=== PATIENT | female | born 1950 | race African-American/Black ===

== ENCOUNTER 2022-10-13 13:06 | Emergency (ER) | payer MEDICARE, SELFPAY ==
--- NOTE | ~2022-10-13 | CT_ITS ---
EXAMINATION: CT brain wo con DATE: 10/13/2022 14:48 INDICATION: Dizziness. TECHNIQUE: Computed tomography (CT) of the head was performed without intravenous contrast. The mA wa s adjusted according to patient size. Iterative reconstruction technique was employed. The dose-lengt h product was 605.33 mGy-cm. COMPARISON: None FINDINGS: There is no intracranial hemorrhage, acute infarction, or abnormal intracranial mass lesion . There are scattered areas of low attenuation in the cerebral white matter. There is no intracranial hemorrhage, acute infarction, or abnormal intracranial mass lesion. The ventricles are normal in siz e. The orbits are normal. The paranasal sinuses are clear. The mastoid air cells are normal. IMPRESSION: 1. Mild nonspecific cerebral white matter disease, which likely represents chronic small vessel ische evelyne disease. Reviewed, dictated and finalized at location E. IMPRESSION: 1. 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
[2022-10-13 13:14] VITALS: BP 167/95; PULSE 79; RESP 16; TEMP 37; O2SAT 94
--- NOTE | 2022-10-13 13:14 | ECG_ITS ---
Measurements Intervals [place] Rate: 66 P: 35 AL: 181 QRS: -6 QRSD: 97 T: 11 QT: 408 QTc: 431 Interpretive Statements SINUS RHYTHM WITH SINUS ARRHYTHMIA INCOMPLETE RIGHT BUNDLE BRANCH BLOCK MINIMAL Q WAVES- HIGH LATERAL LEADDS BORDERLINE T WAVE ABNORMALITY- INFERIOR LEADS BASELINE ARTIFACT- I, II, III, AVR, AVL BORDERLINE ECG NO PREVIOUS ECG AVAILABLE FOR COMPARISON Electronically Signed On 10-13-2022 13:51:39 CDT by Scot Tinajero D.O.
--- NOTE | 2022-10-13 13:40 | PC.NURSE ---
Pt is wheeled into ER c/o dizziness that started yesterday morning after waking up. States she feels like the room is spinning and has to use the wall to support herself when walking. States she did feel nauseous and had bouts of dry heaving with the eventual watery emesis after drinking water to try and calm her stomach. States she has not been nauseous or had any emesis since. Denies any CP or SOB. States she does have pain in her lower back which is chronic. Pt is AOx3. Denies any LOC.
--- NOTE | 2022-10-13 13:58 | ED.DIZZY ---
HPI - Dizziness General Chief Complaint: Dizziness Stated Complaint: dizzy Time Seen by Provider: 10/13/22 13:44 History of Present Illness HPI Narrative: 72-year-old female presented to the emergency department for evaluation of dizziness that started yesterday. Patient states when she stands up gets walking she has a spinning sensation and feels like she is drifting to the left. Patient denies any falls or injuries. Patient denies any prior history of CVA. Patient denies any focal numbness or weakness. Related Data Allergies Allergy/AdvReac Type Severity Reaction Status Date / Time codeine Allergy Hives Verified 10/13/22 14:20 orange Allergy Other Verified 10/13/22 14:20 Penicillins Allergy Hives Verified 10/13/22 14:20 Review of Systems Review of Systems: All systems reviewed & are unremarkable except as noted in HPI and below Exam Narrative: APPEARANCE: Well appearing, no pain, no distress, well-nourished. HEAD: normocephalic, atraumatic. EYES: PERRLA/EOMI, conjunctivae clear. NOSE: Normal no drainage EARS:TMS clear with good light reflex. THROAT: Pharynx clear, no exudate. NECK: Supple. No adenopathy, no masses. RESPIRATORY: Airway patent, respirations nonlabored. Clear to auscultation bilaterally, no rales, rhonchi, wheezing. CARDIOVASCULAR: Regular rate and rhythm without murmurs rubs or gallops. ABDOMINAL: Soft, nontender, nondistended, normal bowel sounds MUSCULOSKELETAL: Moves all extremities. Strength/ROM intact, No edema, No calf tenderness. NEURO: Alert. Cranial nerves II through XII intact. Grossly intact SKIN: Warm, dry. Normal Color Course Course Emergency Course: 72-year-old female presenting to the ED for evaluation of dizziness. Unable to induce dizziness with sitting. Patient did have sustained nystagmus when looking to the left but did not have any symptoms with this. Patient had no focal deficit. Patient will be treated with meclizine and CT is pending. Patient and family were updated on the plan for treatment and evaluation. Patient had normal orthostatics and after the meclizine patient had no dizziness with standing and ambulation. Patient and family were updated on the results of the work-up. Patient repeatedly stated that she felt improved with treatment. Patient was provided meclizine for home. Patient was encouraged to have close follow-up with her primary care physician. All questions and concerns were addressed and patient was well-appearing at time of discharge. Vital Signs Vital signs: Vital Signs Temperature 98.6 F 10/13/22 13:14 Pulse Rate 79 10/13/22 13:14 Respiratory Rate 16 10/13/22 13:14 Blood Pressure 167/95 H 10/13/22 13:14 Pulse Oximetry 94 10/13/22 13:14 Oxygen Delivery Room Air 10/13/22 13:14 Temperature 98.6 F 10/13/22 13:14 Pulse Rate 72 10/13/22 16:42 Respiratory Rate 16 10/13/22 16:42 Blood Pressure 161/64 H 10/13/22 16:42 Pulse Oximetry 94 10/13/22 16:14 Oxygen Delivery Room Air 10/13/22 13:14 MDM - Dizziness Differential Diagnosis Differential diagnosis: Likely benign paroxysmal positional vertigo, orthostatic hypotension, vertebral basilar insufficiency, cerebrovascular accident, acute vestibular neuronitis and transient cerebral ischemia Lab Data Attestation: I reviewed the patient's lab results. 10/13/22 14:16 10/13/22 14:35 Labs: Lab Results 10/13/22 10/13/22 10/13/22 Range/Units 14:16 14:35 15:09 WBC 7.4 (4.5-10.0) K/mm3 RBC 4.32 (4.2-5.4) M/mm3 Hgb 13.6 (12.0-15.0) g/dL Hct 43.2 (37.0-47.0) % MCV 100.0 (80-100) fl MCH 31.5 (26-34) pg MCHC 31.5 L (32-36) g/dl RDW 12.5 (11.5-14.5) % Plt Count 233 (150-375) k/mm3 MPV 10.0 (7.4-10.4) fl Immature Gran % (Auto) 0.3 (0-0.5) % Neut % (Auto) 63.6 (45.5-73.1) % Lymph % (Auto) 23.1 (18.3-44.2) % [place] % (Auto) 11.1 H (2.6-8.5) % Eos % (Auto) 1.2 (0
[2022-10-13] MEDS: MECLIZINE HCL 25 MG TABLET PO (14:21)
[2022-10-13] MEDS: Please add drug allergy info to patient profile. 1 EACH XX (14:21)
[2022-10-13 14:23] LABS: Basophils Absolute Auto 0.1 K/mm3 (0.0-0.1); Basophils Percent Auto 0.7 % (0.2-1.2); Eosinophils Absolute Auto 0.1 K/mm3 (0-0.3); Eosinophils Percent Auto 1.2 % (0-4.4); Hematocrit 43.2 % (37.0-47.0); Hemoglobin 13.6 g/dL (12.0-15.0); Immature Granulocyte Absolute 0.02 K/mm3 (0.00-0.031); Immature Granulocyte Percent A 0.3 % (0-0.5); Lymphocytes Absolute Auto 1.71 K/mm3 (0.9-3.2); Lymphocytes Percent Auto 23.1 % (18.3-44.2); Mean Corpuscular HGB Conc 31.5 g/dl (32-36); Mean Corpuscular Hemoglobin 31.5 pg (26-34); Monocytes Absolute Auto 0.8 K/mm3 (0.1-0.6); Monocytes Percent Auto 11.1 % (2.6-8.5); Neutrophils Absolute Auto 4.7 K/mm3 (1.3-6.7); Neutrophils Percent Auto 63.6 % (45.5-73.1); Platelet Count Result 233 k/mm3 (150-375); Red Blood Count 4.32 M/mm3 (4.2-5.4); Red Cell Distribution Width 12.5 % (11.5-14.5); White Blood Count 7.4 K/mm3 (4.5-10.0)
[2022-10-13 14:30] VITALS: BP 180/85; PULSE 71
[2022-10-13 14:32] VITALS: BP 173/93; PULSE 73
[2022-10-13 14:35] VITALS: BP 175/89
--- NOTE | 2022-10-13 14:39 | PC.NURSE ---
While performing orthostatic bps pt, when standing pt states that she did not feel dizzy at that time. Pt was able to get back into bed without assistance.
[2022-10-13 14:51] LABS: Alanine Aminotransferase 44 U/L (6-35); Albumin Level 4.6 g/dL (3.5-5.1); Alkaline Phosphatase 128 U/L (38-126); Anion Gap 5 mmol/L (8-16); Aspartate Amino Transferase 49 U/L (14-36); Bilirubin,Total 1.1 mg/dL (0.2-1.3); Blood Urea Nitrogen 8 mg/dL (7-17); Calcium 9.3 mg/dL (8.4-10.2); Carbon Dioxide 34 mmol/L (22-30); Chloride 101 mmol/L (98-107); Estimated CRCL calculation 79 ml/min; Estimated Glomerular Filt Rate > 60; Glucose 98 mg/dL (65-110); Potassium 3.7 mmol/L (3.4-5.0); Sodium 140 mmol/L (137-145)
[2022-10-13 15:19] LABS: Appearance Urine Cloudy (Clear); Bacteria Urine Rare /hpf; Bilirubin Urine 1+ (Negative); Blood Urine Negative (Negative); Color Urine Dark Yellow (Yellow); Glucose Urine UA Negative (Negative); Ketones Urine Negative (Negative); Leukocyte Esterase Ur Negative LEU/UL (Negative); Nitrate Urine Negative (Negative); Non Pathogenic Casts 0-2; Protein Urine 3+ mg/dL (Negative); Squamous Epithelial Cell Urine Many /hpf (Few); Urobilinogen Urine 0.2 mg/dL (<2.0); pH Urine 5.5 (5.0-9.0)
[2022-10-13 15:23] LABS: Add Urine Microscopic? YES
[2022-10-13 16:14] VITALS: BP 161/84; PULSE 64; RESP 18; O2SAT 94
[2022-10-13 16:42] VITALS: BP 161/64; PULSE 72; RESP 16
== END 2022-10-13 16:43 | disposition home or self-care (01) ==
PROVIDERS: Emergency Provider Emergency Medicine; PCP Internal Medicine Infectious Disease
DX: H81.10 Benign paroxysmal vertigo, unspecified ear (principal); I45.10 Unspecified right bundle-branch block; R94.31 Abnormal electrocardiogram [ECG] [EKG]; R82.998 Other abnormal findings in urine
CPT/HCPCS: 36415; 70450; 80053; 81001; 85025; 87086; 87088; 93005; 99284; A9270

== ENCOUNTER 2024-06-11 13:52 | Outpatient (CLI) | payer MEDICARE, SELFPAY ==
--- NOTE | ~2024-06-11 | DEXA_ITS ---
Bone Density Report Name: GLORIA GÓMEZ Age: 73 Sex: Female Ethnicity: White Date of : 1950 Indication: postmenopausal; screening for osteoporosis; history of glucocorticoids; hysterectomy; Referring Provider: KEYONNA, SARAH Study: Bone densitometry was performed. Exam Date: June 11, 2024 Accession number: [id number] Bone Density: Region BMD T-score Z-score Classification AP Spine(L1, L2, L4) 1.770 6.7 8.9 Normal Femoral Neck (Left) 0.963 1.0 2.9 Normal Total Hip (Left) 1.164 1.8 3.4 Normal Femoral Neck (Right) 1.057 1.9 3.8 Normal Total Hip (Right) 1.138 1.6 3.2 Normal Femoral Neck Mean 1.010 1.4 3.3 Normal Total Hip Mean 1.151 1.7 3.3 Normal World Health Organization criteria for BMD impression classify patients as: Normal (T-score at or above -1.0), Osteopenia (T-score between -1.0 and -2.5), or Osteoporosis (T-score at or below -2.5). 10-year Fracture Risk: FRAX not reported because: All T-scores for Spine Total, Hip Total, Femoral Neck at or above -1.0 Clinical Information Provided by Patient: Has taken Glucocorticoids Has used the following medications: Vitamin D Has the following medical conditions: Hysterectomy Patient maximum height was 65.5 Menopause Age: 52 Does not regularly consume dairy products Onset of menses at age 15 Number of children 3 Impression: The patient has normal bone mass. The patient has risk factors, including: history of glucocorticoid therapy. Discussion: LOW RISK OF FRACTURE; BONE DENSITY IS WELL ABOVE THE MINIMUM DESIRABLE LEVEL AND ABOVE AVERAGE FOR AGE AND SEX AT ALL SKELETAL SITES TESTED. This person's bone density is above expected limits for age and sex. This is rarely clinically significant, but should be pursued if there are significant musculoskeletal complaints. The patient should follow a healthful lifestyle (good nutrition with adequate calcium and vitamin D, and appropriate weight-bearing exercise). Follow-Up: Consider repeating this study in 5 years or sooner if there is some new clinical indication. Reported by: TOMASZ on 06/11/2024 2:19:00 PM. Reviewed, dictated and finalized at location A.
--- OUTSIDE RECORDS SUMMARY | 2024-06-13 01:32 | XMS_ITS | CONTINUITY OF CARE DOCUMENT ---
Author Name davian mauromary Address Unknown Organization [facility] Address [address] [place] [address] Phone [phone] Care Team Providers Care Stationary Engineer Refrigeration Name Role Phone Yashira Heck MD Unavailable [phone] SARAH NEWBY MD Unavailable [phone] SARAH NEWBY MD Unavailable PROBLEMS Condition Status Date Provider Notes Dyspnea on exertion active Michel Hazel Hypertension active Yashira Heck MD Tobacco use, quit active Yashira Heck MD Chest pain-type to be determined active Lexi Heck MD Palpitations active Yashira Heck MD Hypercholesterolemia active Yashira preciado MD Arthritis, knees active Yashira Lindsey Gout active Yashira Heck MD COPD active Yashira Heck MD HAL, adult active Rodriguez Griffith ENCOUNTERS Date Type Provider Location Encounter Diag nosis - In-person encounter Office Visit Yashira Heck MD [facility] HAL, adult - In-person encounter Office Visit Yashira Heck MD [facility] COPD - In-person encounter Office Visit Yashira Heck MD [facility], [facility]-type to be determinedPalpitationsHype rcholesterolemiaArthritis, kneesGout VITAL SIGNS Date Observation Value Provider Body Mass Index (Ratio) 41.10 kg/m2 Rodriguez Griffith blood pressure, cuff size large Ke rri Gruenenfelder blood pressure, diastolic 86 mm[Hg] Ke rri Gruenenfelder blood pressure, systolic 154 mm[Hg] Gila ri Seenfelder oxygen saturation, oximetry 95 % Екатерина Cordell respiratory rate E&M 16 /min [facility] 90 /min Екатерина Andry er weight E&M 247 [lb_av] Екатерина Arrone [facility] height E&M 65 [in_i] Екатерина Andry [facility] blood pressure, diastolic 88 mm[Hg] Dusty Bridges blood pressure, systolic 148 mm[Hg] Gunjan Bridges pulse rate 100 /min Mansi melton oxygen saturation, oximetry 92 % Mansi Bridges respiratory rate E&M 18 /min Nolan Bridges Body Mass Index (Ratio) 44.19 kg/m2 Kandice Bridges weight E&M 265.6 [lb_av] Mansi jiémnez blood pressure, diastolic 91 mm[Hg] Me lopezsa Mackenzie blood pressure, systolic 179 mm[Hg] Jennifer croninkristin Mann pulse rate 86 /min Nora Mann oxygen saturation, oximetry 92 % Nora Mann respiratory rate E&M 16 /min Nora Mann Body Mass Index (Ratio) 44.26 kg/m2 Caitlin michelle Mann weight E&M 266 [lb_av] Nora Mann height E&M 65 [in_i] Nora Mann ALLERGIES Allergy Name Onset Date Reaction Criticality Status KATIE INHIBITORS cough cough Low Criticality acti ve HISTORY OF MEDICATION USE Medication Status Instructions Dates Provider Indications Com ments losartan 25 mg tablet active Joanna Saucedo PLAN COORDINATOR FLOVENT DISKUS 250 MCG/BLIST INHALATION AEROSOL POWDER BREATH ACTIVATED active 1 puff twice a day Екатерина Cordell rinse your mouth after using Coreg 6.25 mg tablet completed 1 tablet twice a day - Joanna Saucedo NP ASPIRIN 81 MG ORAL TABLET active 1 tablet once a day Nora Mann Ventolin HFA 90 mcg/actuation HFA aerosol inhaler active 2 puff every four to six hours Nora Mann Flonase Allergy Relief 50 mcg/actuation spray,suspensio n active once a day Nora Mann allopurinol 100 mg tablet active once a day Nora Mann atorvastatin 40 mg tablet active once a day Nora Mann SOCIAL HISTORY Date Observation Value Provider social history reviewed E&M revi ewed - no changes required Joanna Saucedo NP smoking, year quit 2003 Екатеирна Елена moran cigarette use yes Екатерина kang smoking status Former smoker Екатерина Geigermarissa rubio social history E&M Smoking Histo ry: P atient is a former smoker. Andrew Shepard social history reviewed E&M revi ewed - no changes required Yashira Heck MD smoking, year quit 2004 Mansi Bridges cigarette use yes Mansi jiménez smoking status Former smoker Mansi Mcconnell social history E&M Smoking Histo ry: P atient is a former smoker. Yashira Heck MD social history reviewed E&M revi ewed - no changes required Yashira Heck MD smoking, year quit 2003 Nora Soto Milena cigarette use yes Nora Mann smoking status Former smoker Nora Moore nn FAMILY HISTORY Family Member Condition Mother Family History of Co ronary Artery Disease: INSURANCE PROVIDERS Payer name Policy type / Coverage type Khanh red constitution party ID AARP MEDICARE ADVANTAGE HMO-POS HMO [id number] ADVANCE DIRECTIVES Name Date DISCUSSED - NO DECISION MADE TREATMENT PLAN Date Name Performer [id number],C, Q uit 20 years ago. Joanna Saucedo PLAN COORDINATOR [id number],C, R epeat holter monitor. N oncompliant with cpap. Joanna Saucedo NP [id number],C, C PAP, has not worn in a while, needs new machine Joanna Saucedo NP [id number],C, N egative nuclear stress test in 2015 E cho nm LV function, mild LAE, imparied relaxation Repeat nuclear stress test. Joanna Delon Saucedo NP [id number],C,P atient states her blood pressures are more in 130/80 range at home. COming to doctors make her blood pressure higher . Her updated medication list for this problem includes: Losartan 25 Mg Tablet (Losartan) BP today: 154/86 P rior BP: 148/88 (10/08/2015) Joanna Saucedo PLAN COORDINATOR [id number],C, H er updated medication list for this problem includes: Atorvastatin 40 Mg Tablet (Atorvastatin) ..... Once a day Joanna Saucedo NP [id number],C, P FT's abnormal. N o further complaints of dyspnea. Joanna Saucedo NP [id number],C, F ollows with manager environmental health and safety Joanna Saucedo NP Electrophysiology: Q uit 20 years ago. Joanna Saucedo NP Electrophysiology: R epeat holter monitor. N oncompliant with cpap. Joanna Saucedo [facility] Electrophysiology: C PAP, has not worn in a while, needs new machine Joanna Saucedo [facility] Electrophysiology: N egative nuclear stress test in 2016 E cho nm LV function, mild LAE, imparied relaxation Repeat nuclear stress test. Joanna Saucedo [facility] Electrophysiology:Senthil ellison states her blood pressures are more in 130/80 range at home. COming to doctors make her blood pressure higher . Her updated medication list for this problem includes: Losartan 25 Mg Tablet (Losartan) BP today: 154/86 P rior BP: 148/88 (10/08/2015) Joanna Saucedo [facility] Electrophysiology: H er updated medication list for this problem includes: Atorvastatin 40 Mg Tablet (Atorvastatin) ..... Once a day Joanna Coppolasamir [facility] Electrophysiology: P FT's abnormal. N o further complaints of dyspnea. Joanna Saucedo [facility] Elect[facility]: Adwoa ogden with manager environmental health and safety Joanna Delon Lewis [facility] faxed 09/20 :Rhythm: Sinus Rhythm T he average heart rate was 79 BPM with a maximum heart rate of 128 BPM at 14:16:28. T he minimum heart rate was 56 BPM at 06:48:04. N o Ventricular ectopics were noted. N o Supraventricular ectopics were noted. N o diary submitted. [facility] faxed 09/20 :Left Ventricular Analysis L eft ventricular size is normal.The left ventricular ejection fraction is calculated at 65% TID =.94.Wall motion is normal. No segmental wall motion abnormalities are present. Summary 1 . Normal myocardial perfusion imaging after vasodilator stress with Regadenoson. 2 . Normal left ventricular systolic function with a calculated ejection fraction of 65%. 3 . No obvious significant scintigraphic evidence of myocardial ischemia or scar. [facility] faxed 09/20 :BP today: 148/88 P rior BP: 179/91 (09/10/2015) Her updated medication list for this problem includes: Coreg 6.25 Mg Tabs (Carvedilol) ..... One tab. twice daily Aspirin 81 Mg Tabs (Aspirin) ..... One tab. daily Andrew Devyn [facility] faxed 10/18/15:PFT's a bnormal. [facility] faxed 09/20 :Repeat PFT's: P ulmonary Function Diagnosis: M ild airway obstruction, Following administration of bronchodilators, there is aome but not a significant response. M oderate to severe Restriction partially may be related to body habitus S evere Diffusion Defect when not corrected for alveolar volume, but moderate to severe when corrected for alveolar volume Andrew [facility] faxed 09/19:Her updated medication list for this problem includes: Atorvastatin Calcium 40 Mg Oral Tabs (Atorvastatin calcium) ..... Once daily Yashira Heck MD Cardiology faxed 09/19:BP today: 179/91 Her updated medication list for this problem includes: Coreg 6.25 Mg Tabs (Carvedilol) ..... One tab. twice daily Aspirin 81 Mg Tabs (Aspirin) ..... One tab. daily Yashira Heck MD Cardiology faxed 09/19:Orders: H olter Monitor 24 Hr (CPT-64565) Yashira Heck MD Cardiology faxed 09/19:Orders: H olter Monitor 24 Hr (CPT-76740) S TR - Adenosine (70356) P FT's C omplete Echo (CPT-41996) Yashira Heck MD Date Name Aorta Duplex Ultraso und Holter Monitor 48 hr Stress Regadenoson Holter Monitor 24 Hr Complete Echo Holter Monitor 24 Hr Complete Echo DLCO - 01895 FRC - 18243 FVC - 46249 STR - Adenosine Holter Monitor 24 Hr HISTORY OF PROCEDURES Procedure Date Procedure Name Provider Procedure Notes S tatus EKG Yashira greene MD completed Schedule Followup Yashira hernandez MD 1 year completed SNOMED-CT: 448470342 Smoking Cessation Counseling Yashira Heck MD completed SNOMED-CT: 474373247457272 Current Medications Documented Yashira Heck MD completed BLOOD COUNT HEMOGLOBIN Yashira simons MD completed FVC - 55148 Yashira greene MD completed FRC - 59242 Yashira greene MD completed DLCO - 06236 Yashira greene MD completed Stress EKG Reji Gallardo MD complete d Regadenoson, 4 units ulius Sreehdar pinto MD completed Cardiolite, 2 units Saulius Lakisha beach MD completed SPECT Images Yossi Rodríguez MD com pleted SNOMED-CT: 241060471 Smoking Cessation Counseling Yashira Heck MD completed EKG Yashira greene MD completed SNOMED-CT: 687815548650597 Current Medications Documented Yashira eHck MD completed
--- OUTSIDE RECORDS SUMMARY | 2024-06-13 01:32 | XMS_ITS | Data Portability ---
Author Organization [place] - [facility], Main Office Address [address] [place] [address] Care Team Providers Care Learning Coach Name Role Phone SARAH NEWBY Primary Care Provider SARAH NEWBY Referring Provider [phone] Assessment Encounter Date Assessment Date Assessment LastModified by Organization Details LastModified Time 01/24/2024 01/24/2024 The patient has severe primary osteoarthritis left knee joint she also has a new injury with a contusion and a small hematoma over the anterior left knee no new bony trauma is noted. We talked about treatment options today in detail we are going to start with a course of physical therapy to work on range of motion swelling control we will get her set up here at the office. Talked about medication we are going to start her on naproxen 500 mg b.i.d. with food I told her I would see her back in a month she did inquire about a cortisone injection think this is reasonable due to the fact that she has significant osteoarthritis. Under sterile conditions at her request I injected the patient's left knee joint in the office with 4 cc 0.5% bupivacaine and 20 mg of Kenalog. Patient tolerated the procedure well. I will see her back in a month see how she is progressing slow gradual improvement is to be expected. She voiced understanding agrees above plan she will call for any further problems difficulties or questions. [email or web address] Not available 01/24/2024 11:56:14 Plan of Treatment Reminders Order Date Submit Date Provider Last Modified By Organization Details Last Modified Time Details Appointments None recorded. Lab None recorded. Referral physical therapist referral - please contact patient to schedule 2023 [email or web address] [facility], [address], [place], [address], 13:41:53 Procedures injection/a spiration joint/bursa (PROC) 2023 024 [email or web address] In-Office Order, Internal Use Only DO Not Attach Compendium DO Not Attach Compendium, Do Not Delete/merge, [id number] 11:43:10 Surgeries None recorded. Imaging None recorded. Medication Orders naproxen 500 mg tablet 2023 024 [email or web address] [facility] [address], [address], 4 11:51:00 bupivacaine HCl 0.5 % (5 mg/mL) injection solution 2023 024 [email or web address] [facility] [address], [address], 4 11:51:00 Kenalog 10 mg/mL suspension for injection 2023 024 [email or web address] [facility] [address], [address], 4 11:51:00 Patient TargetsNo targets recorded. Patient InstructionsNo instructions recorded. Reason for Referral Physical Therapist Referral for Pain of left knee joint please contact patient to schedule Referring Physician: Ryder Alaniz, Orthopedic Surgery, Encounter Date: 01/24/2024 Results Created Date Observation Date Name Description Value Unit Range Abnormal Flag Note LastModifiedBy Organization Detail LastModifiedTime 01/23/20 24 XR, knee No observ ation record ed. Not Available 2023 12:15:17 01/23/20 24 XR, elbow No observ ation record ed. [email or web address] Not Available 2023 12:15:14 01/23/20 24 XR, shoul ev No observ ation record ed. [email or web address] Not Available 2023 12:15:22 Result Notes None recorded. Problems Name Problem SNOMED Code Status Onset Date Resolution Date Notes Provider Name and Address Organization Details Recorded Time Osteoarthr itis of knee 243711386 Active Not Available [facility] 3 16:10:14 Dyspnea 878256542 Active Not Available [facility] 3 16:10:14 Chest pain 44963816 Active Not Available [facility] 3 16:10:14 Current tear of medial cartilage AND/OR meniscus of knee Active Not Available [facility] 3 16:10:14 Sarcoidosi s 17285861 Active Not Available [facility] 3 16:10:14 Osteoarthr itis 844349883 Active Not Available [facility] 3 16:10:14 Obesity 302863706 Active Not Available [facility] 3 16:10:14 Cough 57334468 Active Not Available [facility] 3 16:10:14 Derangemen t of knee 24272644 Active Not Available [facility] 3 16:10:14 Snoring 71479238 Active Not Available [facility] 3 16:10:14 Hypersomni a 88679326 Active Not Available [facility] 3 16:10:14 Chronic rhinitis 82175181 Active Not Available [facility] 3 16:10:14 Pain of left knee joint 7241527366309 07 Active 2023 Marzena Zimmerman CNA null, [facility] 4 11:25:27 Osteoarthr itis of left knee joint 8303329847889 09 Active 2023 FIF[facility] Summers [address], [place], [address] , [employer] [facility] 4 11:56:21 Contusion of left knee 4696435069141 9109 Active 2023 FIFI Summers [address], [place], [address] , [facility] [employer] [facility] 4 11:57:18 Problem Notes None recorded. Procedures Surgical History Date Name Laterality Status Provider Name and Address Organization Details Recorded Time Knee completed Marzena Zimmerman CNA [place] - [employer] [facility] 01/24/2024 11:24:56 Imaging Results Imaging Date Name Status LastModified by Organiz ation Details LastModified Time 01/23/2024 XR, knee completed Information no t available 01/23/2024 12:15:17 01/23/2024 XR, elbow completed [email or web address] Information no t available 01/23/2024 12:15:14 01/23/2024 XR, shoulder completed [email or web address] Information not available 01/23/2024 12:15:22 Procedure Notes None recorded. Medical Equipment None Reported. Allergies Allergen ID Allergen Name Allergen Category Reaction Reaction Severity Criticality Documentation Date Start Date Code Code System Note Provider Name and Address Organization Details Recorded Time 08774 Substance with sulfonami de structure and antibacte rial mechanism of action (substanc e) medicatio n rash Not available Not available 07/19/2022 23167 8003 SNOMED Not Available [facility] 16:10:46 Medications Name Sig Start Date Stop Date Status Note LastModified by Organization Details LastModified Time amoxicillin 500 mg capsule 11/12 completed Not Available Not Available Not Available atorvastati n 40 mg tablet TAKE 1 TABLET BY MOUTH EVERY DAY active Not Available Not Available No t Available lisinopril 20 mg-hydrochl orothiazide 12.5 mg tablet Take 1 tablet every day by oral route. 01/23 completed Not Available Not Available Not Available azithromyci n 250 mg tablet 11/12 completed Not Available Not Available Not Available clonidine 0.2 mg/24 hr weekly transdermal patch Apply 1 patch every week by transderm al route. 01/23 completed Not Available Not Available Not Available IBU 800 mg tablet 11/12 completed Not Available Not Available Not Available clarithromy celestino 500 mg tablet 11/12 completed Not Available Not Available Not Available hydrocodone 5 mg-acetamin ophen 325 mg tablet 01/23 completed Not Available Not Available Not Available bupivacaine HCl 0.5 % (5 mg/mL) injection solution Take 20 mg by injection route. 2023 active Not Available Not Available Not Avai lable prednisone 20 mg tablet 11/12 completed Not Available Not Available Not Available allopurinol 100 mg tablet TAKE 1 TABLET BY MOUTH EVERY DAY active Not Available Not Available No t Available sulfamethox azole 800 mg-trimetho prim 160 mg tablet TAKE 1 TABLET BY MOUTH EVERY 12 HOURS DIRECTED FOR 3 DAYS, FOR UTI 01/23 completed Not Available Not Available Not Available tramadol 50 mg tablet 11/12 completed Not Available Not Available Not Available Celebrex 200 mg capsule Take 1 capsule every day by oral route. 11/12 completed Not Available Not Available Not Available prednisolon e acetate 1 % eye drops,suspe nsion 11/12 completed Not Available Not Available Not Available IBU 600 mg tablet 11/12 completed Not Available Not Available Not Available Kenalog 10 mg/mL suspension for injection Take 20 mg by injection route. [address] [facility]: 0003- [phone]- [phone] Not Available Not Available Not Available meclizine 25 mg tablet TAKE 1 TABLET BY MOUTH THREE TIMES A DAY DIRECTED FOR 14 DAYS 01/23 completed Not Available Not Available Not Available cephalexin 500 mg capsule 11/12 completed Not Available Not Available Not Available promethazin e 25 mg tablet 11/12 completed Not Available Not Available Not Available losartan 25 mg tablet TAKE 1 TABLET BY MOUTH EVERY DAY DIRECTED. STOP LISINOPRI L active Not Available Not Available No t Available Mapap (acetaminop hen) 325 mg tablet 11/12 completed Not Available Not Available Not Available diclofenac sodium 75 mg tablet,artur yed release 11/12 completed Not Available Not Available Not Available lisinopril 5 mg tablet 11/12 completed Not Available Not Available Not Available Cheratussin AC 10 mg-100 mg/5 mL oral liquid 11/12 completed Not Available Not Available Not Available fluticasone propionate 50 mcg/actuati on nasal spray,suspe nsion SPRAY 2 SPRAY IN EACH NOSTRIL ONCE A DAY active Not Available Not Available No t Available naproxen 500 mg tablet TAKE 1 TABLET BY MOUTH TWICE A DAY 2023 active Not Available Not Available Not Avai lable amoxicillin 875 mg-potassiu m clavulanate 125 mg tablet TAKE 1 TABLET BY MOUTH TWICE A DAY FOR 7 DAYS 01/23 completed Not Available Not Available Not Available Ventolin HFA 90 mcg/actuati on aerosol inhaler 2019 active Not Available Not Available Not Avai lable TriLyte With Flavor Packets 420 gram oral solution 11/12 completed Not Available Not Available Not Available lidocaine (PF) 10 mg/mL (1 %) injection solution In office injection administe red by the provider 01/[address] [facility]: [phone] [phone]- [phone] Not Available Not Available Not Available Vitals Date Recorded Body height Body mass index (BMI) Body weight Provider Name and Address Organization Details Last Updated DateTime 01/24/2024 163.83 cm 41.4 kg/m2 053344.13 g Marzena Zimmerman CNA [employer] 01/24/2024 11:21:35 Social History Question Answer Notes LastModified by Organizat ion Details LastModified Time Tobacco Smoking Status Never Smoker Marzena Zimmerman CNA null [employer] [facility] 01/24/2024 11:24:29 What Is Your Level Of Alcohol Consumption? 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 Mental Status None recorded. Family History Relationship Description Onset Age of this Age Resolved Age Notes LastModified by Organization Details LastModified Time Brother Heart disease [email or web address] Not available 2023 11:23:39 Sister Family history of stroke [email or web address] Not available 2023 11:23:50 Sister Hypertensive disorder [email or web address] Not available 2023 11:24:01 Sister Diabetes mellitus [email or web address] Not available 2023 11:24:10 Notes:cancer-sister Medical History Condition Response HYPERTENSION Y Gynecological HistoryNo gynecological history recorded. Obstetrics History GPAL:G 0 P 0 0 0 0 Immunizations Vaccine Type Date Status Note Provider Nam e and Address Organization Details Recorded Time Influenza, split virus, quadrivalent, PF 07/19/2013 completed Not Available [facility] 16:10:45 Past Encounters Encounter ID Performer Location Encounter Start Date Encounter Closed Date Diagnosis/Indication Diagnosis SNOMED-CT Code Diagnosis ICD10 Code Diagnosis Note [id number] [facility] [address] [place] [address] 01/24/2024 10:55:26 01/24/2024 13:41:52 Pain of left knee joint 1905095790 94637 M25.562 Osteoarthr itis of left knee joint 6879354728 09805 M17.12 Contusion of left knee 1145851194 3359958 S80.02XA Health Concerns Section Related Observation LastModified by Organization Detai ls LastModified Time None Recorded Concern Status LastModified by Organization Details LastModified Time None Recorded Advance Directives Directive None Recorded Payers Encounter Date Sequence Insurance Name Policy Number Policy Johnston Covered Member ID Johnston Member ID Guarantor Name 01/24/2024 1 [facility] (MEDICARE REPLACEMENT/A DVANTAGE - HMO) [id number] Fely Jiang [id number] Fely Jiang Notes Date Note Type Note Provider Name and Address Organization Details Recorded Time 01/24/2024 text/html The patient is a 73-year-old female who suffered an injury to her left knee 1 week ago. She was walking at the gas station when she tripped on the concrete fell forward and landed on her left knee. She had immediate pain and swelling developed anterior ecchymosis and a small hematoma. She did go to the emergency room at [facility] had x-rays performed. X-rays demonstrated no acute fracture lesion or mass no bony trauma is noted she does have fairly severe tricompartmental degenerative changes however this has been chronically present obviously but she states she has not really had any significant pain in the knee prior to this injury. Today she reports the pain about an 8 on a scale of 1-10 she is not taking any oral anti-inflammatory medication has been trying to move her knee keep it loose limited but states it hurts a lot when she moves it or ambulates. She reports a lot of anterior tenderness over the knee localized to the bruising and hematoma region. She denies any weakness or sensation of instability she is able to bear full weight on it with discomfort. She comes in today for initial evaluation treatment. Today I reviewed the x-rays in detail today with the patient I agree with the above findings. New past medical history sheet was reviewed and signed on intake sheet of today's date drug allergies current medications family social history previous surgical history 10 point review of systems was reviewed and discussed in detail today with the patient. [facility] Summers [address], [place], [address], [facility] [employer] [facility] 01/24/2024 12:01:06 OBGyn Episode No OBEpisode recorded.
--- OUTSIDE RECORDS SUMMARY | 2024-06-13 01:32 | XMS_ITS | Data Portability ---
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 tonia Not available 11/09/2022 13:37:58 Plan of Treatment Reminders Order Date Submit Date Provider Last Modified By Organization Details Last Modified Time Details Appointments ANY 15 2024 08:45A Charles Newby MD Not available Not available Not available Lab rf (rheumato id factor) + anti-ccp abs, serum 2022 023 [facility], [address] [facility], [facility] [place], [address], 02/20/2023 13:12:19 influenza virus A + B + SARS-CoV- 2 (COVID19) Ag panel, rapid IA, upper respirato ry specimen 2022 023 [facility], [address] [place], [address], 11/05/2023 11:33:03 CBC w/ auto diff 2023 024 [facility], [address] [facility], [address], [place], [address], 11/06/2023 10:13:25 CMP, serum or plasma 2023 024 [facility], [address] [facility] [address], [address], [place], [address], 11/06/2023 10:13:21 urinalysi s, dipstick 2023 024 [facility], [address] [place] [address] [address], [address], [place], [address], 11/06/2023 10:13:23 lipid panel, serum 2023 024 [facility], [address] [place], [place] [address]mate[place], [address], [place], [address], 11/06/2023 10:13:20 HbA1c (hemoglob in A1c), blood 2023 024 [facility], [address] [place], [place] [address]mate[place] [address], [address], [place], [address], 11/06/2023 10:13:23 TSH, ultra-sen sitive, serum 2023 024 [facility], [address] [place], [place] [address]mate[place], [address], [place], [address], 11/06/2023 10:13:24 vitamin D, 25-hydrox y, total, serum 2023 024 [facility], [address] [place], [place] [address]mate[address], [address], [place], [address], 04/03/2024 08:31:[address] referral - Hx of a gait abnormali ty, 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 shoulder pain with decreased ROM after a fall 2023 024 [facility] Ryder Alaniz PA-C, [address] , [place], [address], 06/04/2024 11:26:34 sleep medicine referral - HAL on CPAP 2023 024 [facility], [address], [place], [address], 06/04/2024 11:26:34 Procedures None recorded. Surgeries None recorded. Imaging MRI, cervical spine, w/o contrast - Peridonto id synovial hypertrop hy, RA? 2022 023 [facility] ([facility]), [address] [place], [address], 03/01/2023 12:28:17 MAMMO, screening , bilateral 2022 024 [facility] ([facility]), [address] [place], [address], 06/22/2023 11:44:17 XR, hip + pelvis, unilatera l, 2 or 3 view - [facility] [address] [place], [address], 04/03/2024 09:05:31 DEXA [address] (Imaging), [address] [facility] [address], [place], [address], 06/12/2024 09:30:38 Medication Orders Zithromax Z-Justin 250 mg tablet [facility] [address] [facility], [address] [place] [address], [address], 02/19/2023 09:47:38 Augmentin 875 mg-125 mg tablet 2022 023 [facility] [address] [facility], [address] [place] [address], [address], 11/05/2023 11:33:40 meclizine 25 mg tablet 2023 024 [facility] [address] In [facility], [address] [place] [address], [address], 11/05/2023 12:16:36 Patient TargetsNo targets recorded. Patient Instructions Encounter Date Encounter Id Patient Instructions Last Modified By Organization Details Last Modified Time 11/09/[id number] chest and EKG as ordered Azithromycin Neurology opinion Cardiology as referred Follow up in 6-8 weeks and PRN oajao Not available 11/09/2022 13:39:55 02/19/2023 [id number] influenza (flu) vaccine: care instructions oajao Not available 02/19/2023 11:12:18 MRI cervical spine EKG to Dr Pickett (Done) Cardiology follow up Follow up in 3-4 weeks (Post MRI) oajao Not available 02/19/2023 10:11:07 03/22/2023 [id number] cervical disc disease: care instructions oajao Not available 03/22/2023 13:52:06 upper respirator y infection (cold): care instructions oajao Not available 03/22/2023 12:28:06 chronic sinusitis: care instructions oajao Not available 03/22/2023 12:26:45 Labs Augmentin, side effects were discussed MMG in May, Follow up in 6 months and PRN oajao Not available 03/22/2023 12:30:28 11/05/2023 [id number] high cholesterol : care instructions oajao Not available 11/05/2023 12:21:29 body mass index: care instructions oajao Not available 11/05/2023 12:16:34 learning about healthy weight oajao Not available 11/05/2023 12:16:34 Labs Xray Orthopedics Avoid all NSAIDS Follow up in 6 months and PRN oajao Not available 11/05/2023 12:22:37 04/02/2024 [id number] influenza (flu) vaccine: care instructions oajao Not available 04/02/2024 09:51:31 sleep apnea: car e instructions oajao Not available 04/02/2024 10:12:16 Follow up with Orthopedics Sleep medicine Schedule the COVID vaccine Follow up in 3 months and PRN oajao Not available 04/02/2024 10:55:34 Reason for Referral Neurologist 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 shoulder pain with decreased ROM after a fall L. shoulder pain with decreased ROM after a fall Referring Physician: Fransisco New[facility], Encounter Date: 04/02/2024 Results Created Date Observation Date Name Description Value Unit Range Abnormal Flag Note LastModifiedBy Organization Detail LastModifiedTime 10/25/19 23 10/24/2022 POTAS SIUM potassium 3.7 mmol/ L 3.5-5. 3 Not Available [facility] Department [address] [place], [address], 10/24/2022 20:09:10 10/25/19 23 10/24/2022 MAGNE SIUM magnesium 1.83 mg/L 1.70-2 .50 Not Available [facility] Department [address] [place], [address], 10/24/2022 20:09:11 10/25/19 23 10/25/2022 TSH TSH 2.330 uIU/m L 0.450- 4.500 Not Available [facility] ([facility]) [address] [place], [address], 10/25/2022 13:11:50 02/20/20 23 02/20/2023 RHEUM ATOID ARTHR ITIS PROFI LE rheumatoid factor (rf) 11.3 IU/mL <14.0 Not Available [facility]) [address] [place], [address], 02/20/2023 13:12:19 02/20/20 23 02/20/2023 RHEUM ATOID ARTHR ITIS PROFI LE anti-ccp Ab, IgG/IgA 4 units 0-19 Negat lambert <20 Weak posit lambert 20 - 39 Moder ate posit lambert 40 - 59 Stron g posit lambert >59 Not Available [facility] ([facility]) [address] [place], [address], 02/20/2023 13:12:19 11/05/19 24 11/06/2023 LIPID PANEL cholesterol, total 142 mg/dL 100-19 9 Not Available [facility] ([facility]) [address] [place], [address], 11/06/2023 10:13:20 11/05/19 24 11/06/2023 LIPID PANEL triglyceride s 79 mg/dL 0-149 Not Available [facility]) [address] [place], [address], 11/06/2023 10:13:20 11/05/19 24 11/06/2023 LIPID PANEL HDL cholesterol 52 mg/dL >39 Not Available [facility]) [address] [place], [address], 11/06/2023 10:13:20 11/05/19 24 11/06/2023 LIPID PANEL VLDL cholesterol cuate 15 mg/dL 5-40 Not Available [facility] ([facility]) [address] [place], [address], 11/06/2023 10:13:20 11/05/19 24 11/06/2023 LIPID PANEL LDL chol calc ([facility]) 75 mg/dL 0-99 Not Available [facility]) [address] [place], [address], 11/06/2023 10:13:20 11/05/19 24 11/06/2023 COMP. METAB OLIC PANEL (14) glucose 87 mg/dL 70-99 Not Available [facility] ([facility]) [address] [place], [address], 11/06/2023 10:13:21 11/05/19 24 11/06/2023 COMP. METAB OLIC PANEL (14) BUN 15 mg/dL 8-27 Not Available [facility] ([facility]) [address] [place], [address], 11/06/2023 10:13:21 11/05/19 24 11/06/2023 COMP. METAB OLIC PANEL (14) creatinine 0.74 mg/dL 0.57-1 .00 Not Available [facility] ([facility]) [address] [place], [address], 11/06/2023 10:13:21 11/05/19 24 11/06/2023 COMP. METAB OLIC PANEL (14) eGFR 86 mL/mi n/1.7 3 >59 Not Available [facility] ([facility]) [address] [place], [address], 11/06/2023 10:13:21 11/05/19 24 11/06/2023 COMP. METAB OLIC PANEL (14) BUN/creatini ne ratio 20 -28 Not Available [facility] ([facility]) [address], [place], [address], 11/06/2023 10:13:21 11/05/19 24 11/06/2023 COMP. METAB OLIC PANEL (14) sodium 140 mmol/ L 134-14 4 Not Available [facility] ([facility]) [address], [place], [address], 11/06/2023 10:13:21 11/05/19 24 11/06/2023 COMP. METAB OLIC PANEL (14) potassium 4.1 mmol/ L 3.5-5. 2 Not Available [facility] ([facility]) [address], [place], [address], 11/06/2023 10:13:21 11/05/19 24 11/06/2023 COMP. METAB OLIC PANEL (14) chloride 102 mmol/ L 96-106 Not Available [facility] ([facility]) [address], [place], [address], 11/06/2023 10:13:21 11/05/19 24 11/06/2023 COMP. METAB OLIC PANEL (14) carbon dioxide, total 22 mmol/ L 20-29 Not Available [facility] ([facility]) [address], [place], [address], 11/06/2023 10:13:21 11/05/19 24 11/06/2023 COMP. METAB OLIC PANEL (14) calcium 9.6 mg/dL 8.7-10 .3 Not Available [facility] ([facility]) [address] [facility], [place], [address], 11/06/2023 10:13:21 11/05/19 24 11/06/2023 COMP. METAB OLIC PANEL (14) protein, total 7.9 g/dL 6.0-8. 5 Not Available [facility] ([facility]) [address] [facility] [place], [address], 11/06/2023 10:13:21 11/05/19 24 11/06/2023 COMP. METAB OLIC PANEL (14) albumin 4.1 g/dL 3.8-4. 8 Not Available [facility] ([facility]) [address] [facility], [place], [address], 11/06/2023 10:13:21 11/05/19 24 11/06/2023 COMP. METAB OLIC PANEL (14) globulin, total 3.8 g/dL 1.5-4. 5 Not Available [facility] ([facility]) [address] [facility], [place], [address], 11/06/2023 10:13:21 11/05/19 24 11/06/2023 COMP. METAB OLIC PANEL (14) bilirubin, total 0.9 mg/dL 0.0-1. 2 Not Available [facility] ([facility]) [address] [facility], [place], [address], 11/06/2023 10:13:21 11/05/19 24 11/06/2023 COMP. METAB OLIC PANEL (14) alkaline phosphatase 128 IU/L 44-121 above high normal Not Available [facility] ([facility]) [address] [facility], [place], [address], 11/06/2023 10:13:21 11/05/19 24 11/06/2023 COMP. METAB OLIC PANEL (14) AST (SGOT) 34 IU/L 0-40 Not Available [facility] ([facility]) [address] [facility], [address], 11/06/2023 10:13:21 11/05/19 24 11/06/2023 COMP. METAB OLIC PANEL (14) ALT (SGPT) 27 IU/L 0-32 Not Available [facility] ([facility]) [address] [facility], [place], [address], 11/06/2023 10:13:21 11/05/19 24 11/06/2023 MICRO SCOPI C EXAMI NATIO N WBC 6-10 /hpf 0-5 abnormal Not Available [facility] ([facility]) [address] [facility], [place], [address], 11/06/2023 10:13:22 11/05/19 24 11/06/2023 MICRO SCOPI C EXAMI NATIO N RBC 0-2 /hpf 0-2 Not Available [facility] ([facility]) [address] [facility], [place], [address], 11/06/2023 10:13:22 11/05/19 24 11/06/2023 MICRO SCOPI C EXAMI NATIO N epithelial cells (non renal) >10 /hpf 0-10 abnormal Not Available [facility] ([facility]) [address] [facility], [place], [address], 11/06/2023 10:13:22 11/05/19 24 11/06/2023 MICRO SCOPI C EXAMI NATIO N casts NONE SEEN /lpf nonese en Not Available [facility] ([facility]) [address] [facility], [place], [address], 11/06/2023 10:13:22 11/05/19 24 11/06/2023 MICRO SCOPI C EXAMI NATIO N bacteria MODERA TE nonese en/few abnormal Not Available [facility] ([facility]) [address] [facility], [place], [address], 11/06/2023 10:13:22 11/05/19 24 11/06/2023 HEMOG LOBIN A1C hemoglobin A1C 5.4 % 4.8-5. 6 Predi abete s: 5.7 - 6.4 Diabe shy: >6.4 Glyce evelyne contr ol for adult s with diabe shy: <7.0 Not Available [facility] ([facility]) [address] [facility], [place], [address], 11/06/2023 10:13:22 11/05/19 24 11/06/2023 URINA LYSIS , ROUTI NE specific gravity 1.024 1.005- 1.030 Not Available [facility] ([facility]) [address] [facility], [place], [address], 11/06/2023 10:13:23 11/05/19 24 11/06/2023 URINA LYSIS , ROUTI NE pH 6.0 5.0-7. 5 Not Available [facility] ([facility]) [address] [facility], [place], [address], 11/06/2023 10:13:23 11/05/19 24 11/06/2023 URINA LYSIS , ROUTI NE urine-color YELLOW yellow Not Available [facility] ([facility]) [address] [facility], [place], [address], 11/06/2023 10:13:23 11/05/19 24 11/06/2023 URINA LYSIS , ROUTI NE appearance CLEAR clear Not Available [facility] ([facility]) [address] [facility], [place], [address], 11/06/2023 10:13:23 11/05/19 24 11/06/2023 URINA LYSIS , ROUTI NE WBC esterase NEGATI VE negati ve Not Available [facility] ([facility]) [address] [place], [address], 11/06/2023 10:13:23 11/05/19 24 11/06/2023 URINA LYSIS , ROUTI NE protein 1+ negati ve/tra ce abnormal Not Available [facility] ([facility]) [address] [place], [address], 11/06/2023 10:13:23 11/05/19 24 11/06/2023 URINA LYSIS , ROUTI NE glucose NEGATI VE negati ve Not Available [facility] ([facility]) [address] [place], [address], 11/06/2023 10:13:23 11/05/19 24 11/06/2023 URINA LYSIS , ROUTI NE ketones NEGATI VE negati ve Not Available [facility] ([facility]) [address] [place], [address], 11/06/2023 10:13:23 11/05/19 24 11/06/2023 URINA LYSIS , ROUTI NE occult blood NEGATI VE negati ve Not Available [facility] ([facility]) [address] [place], [address], 11/06/2023 10:13:23 11/05/19 24 11/06/2023 URINA LYSIS , ROUTI NE bilirubin NEGATI VE negati ve Not Available [facility] ([facility]) [address] [place], [address], 11/06/2023 10:13:23 11/05/19 24 11/06/2023 URINA LYSIS , ROUTI NE urobilinogen ,semi-qn 1.0 mg/dL 0.2-1. 0 Not Available [facility] ([facility]) [address] [place], [address], 11/06/2023 10:13:23 11/05/19 24 11/06/2023 URINA LYSIS , ROUTI NE nitrite, urine NEGATI VE negati ve Not Available [facility] ([facility]) [address] [place], [address], 11/06/2023 10:13:23 11/05/19 24 11/06/2023 URINA LYSIS , ROUTI NE microscopic examination SEE BELOW: Micro scopi c was indic ated and was perfo rmed. Not Available [facility] ([facility]) [address] [facility], [place], [address], 11/06/2023 10:13:23 11/05/19 24 11/06/2023 TSH TSH 1.770 uIU/m L 0.450- 4.500 Not Available [facility] ([facility]) [address] [facility], [place], [address], 11/06/2023 10:13:24 11/05/19 24 11/06/2023 CBC WITH DIFFE RENTI AL/PL ATELE T WBC 5.7 x10e3 /uL 3.4-10 .8 Not Available [facility] ([facility]) [address] [facility], [place], [address], 11/06/2023 10:13:25 11/05/19 24 11/06/2023 CBC WITH DIFFE RENTI AL/PL ATELE T RBC 4.18 x10e6 /uL 3.77-5 .28 Not Available [facility] ([facility]) [address] [facility], [place], [address], 11/06/2023 10:13:25 11/05/19 24 11/06/2023 CBC WITH DIFFE RENTI AL/PL ATELE T hemoglobin 13.0 g/dL 11.1-1 5.9 Not Available [facility] ([facility]) [address] [facility], [place], [address], 11/06/2023 10:13:25 11/05/19 24 11/06/2023 CBC WITH DIFFE RENTI AL/PL ATELE T hematocrit 41.0 % 34.0-4 6.6 Not Available [facility] ([facility]) [address] [facility], [place], [address], 11/06/2023 10:13:25 11/05/19 24 11/06/2023 CBC WITH DIFFE RENTI AL/PL ATELE T MCV 98 fL 79-97 above high normal Not Available [facility] ([facility]) [address] [facility], [place], [address], 11/06/2023 10:13:25 11/05/19 24 11/06/2023 CBC WITH DIFFE RENTI AL/PL ATELE T MCH 31.1 pg 26.6-3 3.0 Not Available [facility] ([facility]) [address] [facility], [place], [address], 11/06/2023 10:13:25 11/05/19 24 11/06/2023 CBC WITH DIFFE RENTI AL/PL ATELE T MCHC 31.7 g/dL 31.5-3 5.7 Not Available [facility] ([facility]) [address] [facility], [place], [address], 11/06/2023 10:13:25 11/05/19 24 11/06/2023 CBC WITH DIFFE RENTI AL/PL ATELE T RDW 11.7 % 11.7-1 5.4 Not Available [facility] ([facility]) [address] [facility], [place], [address], 11/06/2023 10:13:25 11/05/19 24 11/06/2023 CBC WITH DIFFE RENTI AL/PL ATELE T platelets 201 x10e3 /uL 150-45 0 Not Available [facility] ([facility]) [address] [facility], [place], [address], 11/06/2023 10:13:25 11/05/19 24 11/06/2023 CBC WITH DIFFE RENTI AL/PL ATELE T neutrophils 50 % notest ab. Not Available [facility] ([facility]) [address] [facility], [place], [address], 11/06/2023 10:13:25 11/05/19 24 11/06/2023 CBC WITH DIFFE RENTI AL/PL ATELE T lymphs 32 % notest ab. Not Available [facility] ([facility]) [address] [facility], [place], [address], 11/06/2023 10:13:25 11/05/19 24 11/06/2023 CBC WITH DIFFE RENTI AL/PL ATELE T monocytes 12 % notest ab. Not Available [facility] ([facility]) [address] [facility], [place], [address], 11/06/2023 10:13:25 11/05/19 24 11/06/2023 CBC WITH DIFFE RENTI AL/PL ATELE T eos 5 % notest ab. Not Available [facility] ([facility]) [address] [facility], [place], [address], 11/06/2023 10:13:25 11/05/19 24 11/06/2023 CBC WITH DIFFE RENTI AL/PL ATELE T basos 1 % notest ab. Not Available [facility] ([facility]) [address] [facility], [place], [address], 11/06/2023 10:13:25 11/05/19 24 11/06/2023 CBC WITH DIFFE RENTI AL/PL ATELE T neutrophils (absolute) 2.8 x10e3 /uL 1.4-7. 0 Not Available [facility] ([facility]) [address] [place], [address], 11/06/2023 10:13:25 11/05/19 24 11/06/2023 CBC WITH DIFFE RENTI AL/PL ATELE T lymphs (absolute) 1.8 x10e3 /uL 0.7-3. 1 Not Available [facility] ([facility]) [address] [place], [address], 11/06/2023 10:13:25 11/05/19 24 11/06/2023 CBC WITH DIFFE RENTI AL/PL ATELE T monocytes(ab solute) 0.7 x10e3 /uL 0.1-0. 9 Not Available [facility] ([facility]) [address] [place], [address], 11/06/2023 10:13:25 11/05/19 24 11/06/2023 CBC WITH DIFFE RENTI AL/PL ATELE T eos (absolute) 0.3 x10e3 /uL 0.0-0. 4 Not Available [facility] ([facility]) [address] [facility], [place], [address], 11/06/2023 10:13:25 11/05/19 24 11/06/2023 CBC WITH DIFFE RENTI AL/PL ATELE T baso (absolute) 0.1 x10e3 /uL 0.0-0. 2 Not Available [facility] ([facility]) [address] [facility], [place], [address], 11/06/2023 10:13:25 11/05/19 24 11/06/2023 CBC WITH DIFFE RENTI AL/PL ATELE T immature granulocytes 0 % notest ab. Not Available [facility] ([facility]) [address] [facility], [place], [address], 11/06/2023 10:13:25 11/05/19 24 11/06/2023 CBC WITH DIFFE RENTI AL/PL ATELE T immature grans (abs) 0.0 x10e3 /uL 0.0-0. 1 Not Available [facility] ([facility]) [address] [facility], [place], [address], 11/06/2023 10:13:25 11/12/19 24 11/12/2023 PROTE IN ELECT RO RANDO M URINE please note: COMMEN T Prote [facility] w via compu ter, mail, or couri peng adrian. Not Available [facility] ([facility]) [address] [facility], [place], [address], 11/14/2023 11:14:42 11/12/19 24 11/13/2023 PROTE IN ELECT RO, RANDO M URINE protein,tota l,urine 16.3 mg/dL notest ab. Not Available [facility] ([facility]) [address] [place], [address], 11/14/2023 11:14:42 11/12/19 24 11/14/2023 PROTE IN ANAID SHAH M URINE albumin, U 51.0 % Not Available [facility] ([facility]) [address] [place], [address], 11/14/2023 11:14:42 11/12/19 24 11/14/2023 PROTE IN [facility] BEAR MCFADDENO M URINE nuqix-4-vovx ulin, U 2.3 % Not Available [facility] ([facility]) [address] [place], [address], 11/14/2023 11:14:42 11/12/19 24 11/14/2023 PROTE IN [facility] ANAID MCFADDEN URINE bbrvo-1-rmec ulin, U 10.3 % Not Available [facility] ([facility]) [address] [place], [address], 11/14/2023 11:14:42 11/12/19 24 11/14/2023 PROTE IN ANAID SHAH URINE beta globulin, U 19.3 % Not Available [facility]) [address] [place], [address], 11/14/2023 11:14:42 11/12/19 24 11/14/2023 PROTE IN [facility] ANAID MCFADDEN URINE gamma globulin, U 17.1 % Not Available [facility] ([facility]) [address] [place], [address], 11/14/2023 11:14:42 11/12/19 24 11/14/2023 PROTE IN ANAID SHAH M URINE M-spike, % NOT OBSERV ED % notobs erved Not Available [facility] ([facility]) [address] [place], [address], 11/14/2023 11:14:42 11/12/19 24 11/14/2023 PROTE IN ELECT ANAID MCFADDEN URINE pdf . Not Available [facility] ([facility]) [address], [place], [address], 11/14/2023 11:14:42 11/12/19 24 11/13/2023 PROTE IN TOTAL , QN, 24-HR URINE prot,24HR calculated 245 mg/24 _HR 30-150 above high normal Not Available [facility] ([facility]) [address] [facility], [place], [address], 11/14/2023 11:14:43 04/02/20 24 04/03/2024 VITAM IN D, 25-HY DROXY vitamin D, 25-hydroxy 16.4 NG/mL 30.0-1 00.0 below low normal Vitam in D defic iency has been defin ed by the Insti tute of Medic ine and an Endoc rine Socie ty pract ice guide line as a level of serum 25-OH vitam in D less than 20 ng/mL (1,2) . The Endoc rine Socie ty went on to furth er defin e vitam in D insuf ficie ncy as a level betwe en 21 and 29 ng/mL (2). 1. IOM (Inst itute of Medic ine). 2010. Jania ry refer ence markus es for calci um and D. Raheem melvin [place]: [facility] . 2. Bethanie armas MF, Roe ey [place], [place] off-F errar i HOLMAN, et al. Evalu ation , treat ment, and preve ntion of vitam in D defic iency : an Endoc rine Socie ty clini cuate pract ice guide line. JCEM. 2010; 96(7) :1911 -30. Not Available [facility] ([facility]) [address] [facility], [place], [address], 04/03/2024 08:31:48 10/14/19 23 10/13/2022 CT, brain , w/o contr ast No observ ation record ed. [address], [place], [address], 10/24/2022 09:31:08 10/26/19 23 10/25/2022 MRI, brain + brain stem, w/o contr ast No observ ation record ed. [facility] [address] [place], [address], 02/19/2023 10:08:59 11/10/19 23 10/13/2022 elect timoteo wolffjigar am No observ ation record ed. [address], [place], [address], 02/19/2023 09:54:38 01/05/20 23 01/04/2023 CT, chest , w/ contr ast No observ ation record ed. [facility] [address] [place], [address], 02/19/2023 10:07:16 03/01/20 23 03/01/2023 MRI, brain + brain stem, w/o contr ast No observ ation record ed. [facility] [address] [place], [address], 03/22/2023 12:09:38 03/01/20 23 03/01/2023 MRI, cervi cuate spine , w/o contr ast No observ ation record ed. [facility] [address] [place], [address], 03/22/2023 12:18:47 06/22/19 24 06/22/2023 MAMMO , scree casimiro, bilat eral No observ ation record ed. [facility] [address] [place], [address], 11/05/2023 12:00:57 04/02/20 24 01/16/2024 XR, shoul ev No observ ation record ed. [facility] [address], [place], [address], 04/03/2024 09:05:31 04/08/20 24 01/16/2024 XR, elbow No observ ation record ed. oajao Not Available 2023 09:06:53 04/08/20 24 01/16/2024 XR, knee No observ ation record ed. oajao Not Available 2023 09:06:53 Result Notes None recorded. 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 333973129 Active 2022 Not Available [facility] 4 09:56:49 Chronic cerebral ischemia 214091244 Active 2022 Not Available [facility] 4 09:56:49 Electrocar diogram abnormal 557751378 Active 2022 Not Available [facility] 4 09:56:49 Degenerati on of cervical interverte bral disc 13022458 Active 2022 Not Available [facility] 4 09:56:50 Sarcoidosi s 46905647 Active Not Available [facility] 4 09:56:49 Blood leukocyte number above reference range 023865074 Active Not Available [facility] 4 09:56:50 Increased blood pressure 02537851 Active Not Available [facility] 4 09:56:49 Pain of left knee joint 3562906595509 07 Active Oladele Ajao, MD Attn: Accounting ,[address] [facility], [place], [address] , [facility] 4 09:48:55 Gout 10695661 Active Not Available [facility] 4 09:56:50 Shoulder pain 99654457 Active Not Available [facility] 4 09:56:50 Elevated blood-pres sure reading without diagnosis of hypertensi on 019603800 Active Not Available [facility] 4 09:56:49 Benign hypertensi on 01890929 Active Not Available [facility] 4 09:56:49 Injury of foot 281412327 Active Not Available [facility] 4 09:56:49 Pure hyperchole sterolemia 504323617 Active Not Available [facility] 4 09:56:49 Chest pain 34538997 Active Not Available [facility] 4 09:56:49 Alkaline phosphatas e above reference range 307885303 Active Not Available [facility] 4 09:56:49 Knee pain Active Not Available [facility] 4 09:56:49 Osteoarthr itis of knee 991364609 Active Not Available [facility] 4 09:56:49 Acute bronchitis 52686086 Active Not Available [facility] 4 09:56:49 Increased liver function 94148613 Active Not Available [facility] 4 09:56:50 Grief finding 546926911 Active Not Available [facility] 4 09:56:49 Notes:Some problems listed i n Documents: #[id number], #[id number] could not be added to this patient's chart. Please review these documents and add these problems to the patient's chart manually as needed. Problem Notes None recorded. Procedures Surgical History Date Name Laterality Status Provider Name and Address Organization Details Recorded Time 09/19/19 14 colonoscopy completed Fransisco Newby MD Attn: Accounting,[address] [facility], [place], [address], [facility] 10/13/2022 13:52:30 05/21/18 81 Total hysterectomy completed Fransisco Newby MD Attn: Accounting,[address], [place], [address], [place] [facility] 05/16/2019 16:22:04 Back Surgery completed August Yamile [place] [facility] 05/28/2014 16:12:20 Hysterectomy completed Fransisco Newby MD Attn: Accounting,[address], [place], [address], [place] [facility] 11/06/2014 15:44:21 Tubal Ligation completed Fransisco Newby MD Attn: Accounting,[address], [place], [address], [place] [facility] 11/06/2014 15:44:21 Imaging Results Imaging Date Name Status LastModified by Organization Details LastModified Time 10/13/2022 CT, brain, w/o contrast completed [address], [address], 10/24/2022 09:31:08 10/25/2022 MRI, brain + brain stem, w/o contrast completed [facility] [address] [place], [address], 02/19/2023 10:08:59 10/13/2022 electrocardiogram completed [address], [address], 02/19/2023 09:54:38 01/04/2023 CT, chest, w/ contrast completed [facility] [address] [place], [address], 02/19/2023 10:07:16 03/01/2023 MRI, brain + brain stem, w/o contrast completed [facility] [address] [place], [address], 03/22/2023 12:09:38 03/01/2023 MRI, cervical spine, w/o contrast completed [facility] [address] [place], [address], 03/22/2023 12:18:47 06/22/2023 MAMMO, screening, bilateral completed [facility] [address] [place], [address], 11/05/2023 12:00:57 01/16/2024 XR, shoulder completed [facility] [address] [place], [address], 04/03/2024 09:05:31 01/16/2024 XR, elbow completed Information no t available 04/09/2024 09:06:53 01/16/2024 XR, knee completed Information no t available 04/09/2024 09:06:53 Procedure Notes None recorded. Medical Equipment None Reported. Allergies Allergen ID Allergen Name Allergen Category Reaction Reaction Severity Criticality Documentation Date Start Date Code Code System Note Provider Name and Address Organization Details Recorded Time [id number] ibuprofen medicatio n other severe Not available 09/07/2015 5640 RxNorm GI Ulcer Not Available Not Available Not Available Medications Name Sig Start Date Stop Date Status Note LastModified by Organization Details LastModified Time Prescripti on - New 05/16 completed Not Available Not Available Not Available amoxicilli n 500 mg capsule 02/21 completed Not Available Not Available Not Available atorvastat in 40 mg tablet TAKE 1 TABLET BY MOUTH EVERY DAY active Not Available Not Available No t Available azithromyc in 250 mg tablet TAKE 2 TABLETS BY MOUTH TODAY, THEN TAKE 1 TABLET DAILY FOR 4 DAYS 02/19 completed Not Available Not Available Not Available ibuprofen 800 mg tablet 10/17 completed Not Available Not Available Not Available hydrocodon e 5 mg-acetami nophen 325 mg tablet active Not Available Not Available No t Available prednisone 20 mg tablet TAKE 2 TABLETS EVERY DAY BY MOUTH WITH MEALS FOR 5 DAYS. 12/13 completed Not Available Not Available Not Available Tylenol Arthritis Pain 650 mg tablet,ext ended release Take 2 tablets every 8 hours by oral route as directed for 30 days. 2016 active Not Available Not Available Not Avai lable Biaxin 500 mg tablet Take 1 tablet every 12 hours by oral route for 7 days. 11/06 completed Not Available Not Available Not Available Aspir-Low 81 mg tablet,del ayed release Take 1 tablet every day by oral route as directed for 30 days. 2018 active Not Available Not Available Not Avai lable allopurino l 100 mg tablet TAKE 1 TABLET BY MOUTH EVERY DAY active Not Available Not Available No t Available sulfametho xazole 800 mg-trimeth oprim 160 mg tablet TAKE 1 TABLET BY MOUTH EVERY 12 HOURS DIRECTED FOR 3 DAYS, FOR UTI 04/02 completed Not Available Not Available Not Available tramadol 50 mg tablet TAKE 2 TABLETS BY MOUTH EVERY 12 HOURS 10/27 completed Not Available Not Available Not Available Tessalon Perles 100 mg capsule Take 1 capsule 3 times a day by oral route as needed. 2014 active Not Available Not Available Not Avai lable prednisolo ne acetate 1 % eye drops,susp ension 04/04 completed Not Available Not Available Not Available magnesium oxide 400 mg (241.3 mg magnesium) tablet TAKE 1 TABLET BY MOUTH TWICE A DAY DIRECTED FOR 1 DAY 11/09 completed Not Available Not Available Not Available meclizine 25 mg tablet TAKE 1 TABLET BY MOUTH THREE TIMES A DAY DIRECTED FOR 14 DAYS active Not Available Not Available No t Available cephalexin 500 mg capsule Take 1 capsule every 6 hours by oral route for 7 days. 03/22 completed Not Available Not Available Not Available promethazi ne 25 mg tablet active Not Available Not Available Not Available losartan 25 mg tablet TAKE 1 TABLET BY MOUTH EVERY DAY DIRECTED. STOP LISINOPRI L active Not Available Not Available No t Available Mapap (acetamino phen) 325 mg tablet 06/18 completed Not Available Not Available Not Available diclofenac sodium 75 mg tablet,del ayed release one po bid prn with pain, take with meals 09/06 completed Not Available Not Available Not Available lisinopril 5 mg tablet TAKE 1 TABLET BY MOUTH EVERY DAY 05/29 completed Cough 05/29/19 23 Not Available Not Available Not Available ergocalcif justin (vitamin D2) 1,250 mcg (50,000 unit) capsule TAKE 1 CAPSULE BY MOUTH WEEKLY DIRECTED FOR 28 DAYS FOR LOW VITAMIN D. active Not Available Not Available No t Available Cheratussi n AC 10 mg-100 mg/5 mL oral liquid Take 10 mL every 4 hours by oral route for 5 days. 11/06 completed Not Available Not Available Not Available ibuprofen 600 mg tablet 03/22 completed Not Available Not Available Not Available fluticason e propionate 50 mcg/actuat ion nasal spray,susp ension SPRAY 2 SPRAY IN EACH NOSTRIL ONCE A DAY active Not Available Not Available No t Available naproxen 500 mg tablet TAKE 1 TABLET BY MOUTH TWICE A DAY active Not Available Not Available No t Available amoxicilli n 875 mg-potassi um clavulanat e 125 mg tablet TAKE 1 TABLET BY MOUTH TWICE A DAY FOR 7 DAYS 11/04 completed Not Available Not Available Not Available Ventolin HFA 90 mcg/actuat ion aerosol inhaler Inhale two puffs every 6 hours prn with sob 2020 active Not Available Not Available Not Avai lable Klor-Con M20 mEq tablet,ext ended release TAKE 2 TABLETS BY MOUTH EVERY DAY DIRECTED FOR 1 DAY 11/09 completed Not Available Not Available Not Available TriLyte With Flavor Packets 420 gram oral solution active Not Available Not Available Not Available ID NOW COVID-19 Test Kit TEST DIRECTED TODAY 10/27 completed Not Available Not Available Not Available Vitals Date Recorded Body height Provider Name an d Address Organization Details Last Updated DateTime 11/09/2022 166.37 cm Maria Elena Guerrero [place] [facility] 023 09:16:41 Date Recorded Body mass index (BMI) Body weight Provider Name and Address Organization Details Last Updated DateTime 11/09/2022 39.2 kg/m2 090120.58 g [place] [place] 11/09/2022 09:24:34 Date Recorded Oxygen saturation Oxygen saturation in Arterial blood by Pulse oximetry Provider Name and Address Organization Details Last Updated DateTime 11/09/2022 95 % 95 % HELDER [place] [facility] 11/09/2022 09:26:22 Date Recorded Heart rate Provider Name an d Address Organization Details Last Updated DateTime 11/09/2022 84 /min Maria Elena Guerrero [place] [facility] 023 09:26:24 Date Recorded Respiratory rate Provider Name a nd Address Organization Details Last Updated DateTime 11/09/2022 16 /min Maria Elena Rock GlenHE[place]ER rub[place] [facility] 023 09:26:26 Date Recorded Body height Provider Name an d Address Organization Details Last Updated DateTime 02/19/2023 166.37 cm Maria Elena Guerrero [place] [facility] 023 09:41:01 Date Recorded Body mass index (BMI) Body weight Provider Name and Address Organization Details Last Updated DateTime 02/19/2023 39.8 kg/m2 417571.38 g Maria Elena YolandaHELDER rubio [facility] 02/19/2023 09:46:52 Date Recorded Heart rate Provider Name an d Address Organization Details Last Updated DateTime 02/19/2023 80 /min Maria Elena [place] [facility] 023 09:49:07 Date Recorded Respiratory rate Provider Name a nd Address Organization Details Last Updated DateTime 02/19/2023 18 /min Maria Elena Rock [place] rub[place] [facility] 023 09:49:09 Date Recorded Oxygen saturation Oxygen saturation in Arterial blood by Pulse oximetry Provider Name and Address Organization Details Last Updated DateTime 02/19/2023 95 % 95 % Maria Elena YolandaHELDER rubio [facility] 02/19/2023 09:49:16 Date Recorded Body height Provider Name an d Address Organization Details Last Updated DateTime 03/22/2023 166.37 cm Maria Elena Guerrero [place] [facility] 023 11:55:32 Date Recorded Body mass index (BMI) Body weight Provider Name and Address Organization Details Last Updated DateTime 03/22/2023 39.2 kg/m2 549936.58 g Maria Elena Guerrero [place] [facility] 03/22/2023 11:55:45 Date Recorded Oxygen saturation Oxygen saturation in Arterial blood by Pulse oximetry Provider Name and Address Organization Details Last Updated DateTime 03/22/2023 96 % 96 % Maria Elena Guerrero [place] [facility] 03/22/2023 11:58:10 Date Recorded Heart rate Provider Name an d Address Organization Details Last Updated DateTime 03/22/2023 98 /min Maria Elena Rock [place] [facility] 023 11:58:12 Date Recorded Respiratory rate Provider Name a nd Address Organization Details Last Updated DateTime 03/22/2023 18 /min Maria Elena [place] 023 11:58:14 Date Recorded Body height Provider Name an d Address Organization Details Last Updated DateTime 11/05/2023 166.37 cm Maria Elena Guerrero [place] 024 11:33:21 Date Recorded Body mass index (BMI) Body weight Provider Name and Address Organization Details Last Updated DateTime 11/05/2023 39.7 kg/m2 775477.35 g Maria Elena YoladnaHELDER rubio [place] 11/05/2023 11:33:33 Date Recorded Heart rate Provider Name an d Address Organization Details Last Updated DateTime 11/05/2023 70 /min Maria Elena YolandaHELDER rubio [place] 11:37:19 Date Recorded Oxygen saturation Oxygen saturation in Arterial blood by Pulse oximetry Provider Name and Address Organization Details Last Updated DateTime 11/05/2023 93 % 93 % Maria Elena Guerrero [place] 11/05/2023 11:37:31 Date Recorded Body temperature Provider Name a nd Address Organization Details Last Updated DateTime 11/05/2023 97.6 [degF] Maria Elena Guerrero [place] [facility] 2023 11:38:06 Date Recorded Body height Provider Name an d Address Organization Details Last Updated DateTime 04/02/2024 166.37 cm Maria Elena Guerrero [place] 024 09:28:34 Date Recorded Body mass index (BMI) Body weight Provider Name and Address Organization Details Last Updated DateTime 04/02/2024 39.5 kg/m2 608560.76 g Maria Elena Guerrero [place] 04/02/2024 09:28:41 Date Recorded Heart rate Provider Name an d Address Organization Details Last Updated DateTime 04/02/2024 70 /min Maria Elena [place] 024 09:35:07 Date Recorded Oxygen saturation Oxygen saturation in Arterial blood by Pulse oximetry Provider Name and Address Organization Details Last Updated DateTime 04/02/2024 96 % 96 % Maria Elena Guerrero [place] 04/02/2024 09:35:10 Date Recorded Respiratory rate Provider Name a nd Address Organization Details Last Updated DateTime 04/02/2024 16 /min Maria Elena Guerrero [place] [facility] 024 09:35:11 Date Recorded Systolic blood pressure Diastolic blood pressure Provider Name and Address Organization Details Last Updated DateTime 11/09/2022 134 mm[Hg] 80 mm[Hg] Maria Elena Guerrero [place] [facility] 11/09/2022 09:26:21 Date Recorded Systolic blood pressure Diastolic blood pressure Provider Name and Address Organization Details Last Updated DateTime 02/19/2023 140 mm[Hg] 80 mm[Hg] Maria Elena Guerrero [place] [facility] 02/19/2023 09:50:32 Date Recorded Systolic blood pressure Diastolic blood pressure Provider Name and Address Organization Details Last Updated DateTime 03/22/2023 130 mm[Hg] 84 mm[Hg] Maria Elena Guerrero [place] [facility] 03/22/2023 11:58:08 Date Recorded Systolic blood pressure Diastolic blood pressure Provider Name and Address Organization Details Last Updated DateTime 11/05/2023 138 mm[Hg] 84 mm[Hg] Maria Elena Guerrero [place] [facility] 11/05/2023 11:37:15 Date Recorded Systolic blood pressure Diastolic blood pressure Provider Name and Address Organization Details Last Updated DateTime 04/02/2024 144 mm[Hg] 90 mm[Hg] Maria Elena Guerrero [place] [facility] 04/02/2024 09:33:58 Date Recorded Systolic blood pressure Diastolic blood pressure Provider Name and Address Organization Details Last Updated DateTime 04/02/2024 128 mm[Hg] 88 mm[Hg] Fransisco Newby MD Attn: Accounting, [place], [address], [place] - [facility] LICENSE OF [facility] 04/02/2024 10:08:18 Social History Question Answer Notes LastModified by Organizat ion Details LastModified Time Tobacco Smoking Status Former Smoker Fransisco Newby MD Attn: Accounting,[address] [place], [address], [facility] 11/06/2014 15:36:22 What Is Your Level Of Alcohol Consumption? Occasional Wine Information not available 11/05/2023 Are You Blind Or Do You Have Difficulty Seeing? No Information not available 08/31/2020 What Is Your Level Of Caffeine Consumption? Occasional Information not available 08/31/2020 In The 14 Days Before Symptom Onset, Have You Had Close Contact With A Laboratory-confir med COVID-19 While That Case Was Ill? No Information not available 08/31/2020 In The 14 Days Before Symptom Onset, Have You Had Close Contact With A Person Who Is Under Investigation For COVID-19 While That Person Was Ill? No Information not available 08/31/2020 Have You Been To An Area Known To Be High Risk For COVID-19? Yes Information not available 08/31/2020 Are You Deaf Or Do You Have Serious Difficulty Hearing? No Information not available 08/31/2020 Do You Or Have You Ever Used E-cigarettes Or Vape? Never Used Electronic Cigarettes Information not available 05/16/2019 Are There Any Guns Present In Your Home? No Information not available 08/31/2020 What Was The Date Of Your Most Recent Tobacco Screening? 04/02/2024 Information not available 04/02/2024 Do You Use Your Seat Belt Or Car Seat Routinely? Yes Information not available 08/31/2020 Do You Have Smoke And Carbon Monoxide Detectors In Your Home? Yes Information not available 08/31/2020 Do You Or Have You Ever Used Smokeless Tobacco? Never Used Smokeless Tobacco Information not available 05/16/2019 How Much Tobacco Do You Smoke? No Information not available 10/17/2016 Do You Use Any Illicit Or Recreational Drugs? No Information not available 08/31/2020 Do You Use Sunscreen Routinely? No Information not available 08/31/2020 Has Tobacco Cessation Counseling Been Provided? No Information not available 08/31/2020 On What Date Was Tobacco Cessation Counseling Provided? 10/27/2021 [email or web address] Information not available 10/27/2021 Sex: Unknown Functional Status Question Answer Note LastModified by Organization D etails LastModified Time Are you able to care for yourself? Yes Information n ot available 08/31/2020 Mental Status None recorded. Family History Relationship Description Onset Age of this Age Resolved Age Notes LastModified by Organization Details LastModified Time Mother Heart disease asavala Not available 2014 16:12:20 Mother Hypertensive disorder asavala Not available 2014 16:12:20 Father Hypertensive disorder asavala Not available 2014 16:12:20 Brother Hypercholest erolemia asavala Not available 2014 16:12:20 Brother Depressive disorder asavala Not available 2014 16:12:20 Sister Hypercholest erolemia asavala Not available 2014 16:12:20 Medical History Condition Response Lung Disease Y High Cholesterol Y Gynecological History Statement/Question Response Menses Monthly N Obstetrics History GPAL:G 0 P 0 0 0 0 Immunizations Vaccine Type Date Status Note Provider Nam e and Address Organization Details Recorded Time COVID-19, mRNA, LNP-S, PF, 100 mcg/0.5mL dose or 50 mcg/0.25mL dose 1 completed Not Available [facility] 06/22/2023 09:56:50 Influenza, adjuvanted, quadrivalent, PF 2 completed Not Available [facility] 06/22/2023 09:56:50 COVID-19, mRNA, LNP-S, PF, 100 mcg/0.5mL dose or 50 mcg/0.25mL dose 1 completed Not Available [facility] 06/22/2023 09:56:50 COVID-19, mRNA, LNP-S, PF, 100 mcg/0.5mL dose or 50 mcg/0.25mL dose 1 completed Not Available [facility] 06/22/2023 09:56:50 Influenza, adjuvanted, quadrivalent, PF 2 completed Not Available [facility] 06/22/2023 09:56:50 COVID-19, mRNA, LNP-S, PF, 50 mcg/0.5 mL dose 2 completed Not Available [facility] 06/22/2023 09:56:50 COVID-19, mRNA, LNP-S, PF, 100 mcg/0.5mL dose or 50 mcg/0.25mL dose 1 completed Not Available [facility] 06/22/2023 09:56:50 Pneumococcal conjugate PCV 13 0 completed Not Available [facility] 06/22/2023 09:56:50 pneumococcal polysaccharide PPV23 1 completed Not Available [facility] 06/22/2023 09:56:50 zoster recombinant 3 completed Not Available [facility] 06/22/2023 09:56:50 COVID-19, mRNA, LNP-S, PF, katie-sucrose, 30 mcg/0.3 mL 3 completed [place], [place] - [facility] 04/01/2024 16:59:56 zoster recombinant 4 completed [place], [place] [facility] 04/01/2024 16:59:56 Influenza, split virus, quadrivalent, preservative 7 completed Not Available [facility] 06/07/2019 02:49:07 Tdap 2 completed Not Available [facility] 06/22/2023 09:56:50 Influenza, high-dose, trivalent, PF 4 completed Not Available [facility] 06/22/2023 09:56:50 Influenza, split virus, quadrivalent, preservative 9 completed Not Available [facility] 06/07/2019 02:48:28 Influenza, split virus, quadrivalent, preservative 1 completed [place] [facility] 05/04/2021 12:24:17 Tdap 3 completed Fransisco Newby MD Attn: Accounting,[address] [place], [address], [place] [facility] 05/29/2022 19:37:29 Influenza, split virus, quadrivalent, PF 3 completed Fransisco Newby MD Attn: Accounting,[address] [place], [address], [place] [facility] 02/19/2023 12:17:17 Influenza, split virus, trivalent, preservative 5 completed Not Available [facility] 06/07/2019 02:40:21 Influenza, high-dose, trivalent, PF 4 completed Fransisco Newby MD Attn: Accounting,[address], [place], [address], [place] [facility] 04/02/2024 10:50:42 Past Encounters Encounter ID Performer Location Encounter Start Date Encounter Closed Date Diagnosis/Indication Diagnosis SNOMED-CT Code Diagnosis ICD10 Code Diagnosis Note [id number] [facility] [address] [place] [phone] 05/28/2014 15:42:50 05/28/2014 16:41:32 Acute bronchitis 94590142 Z Justin, CXR in February 2014 was somewhat suggestive of interstiti al changes Increased liver function 58287559 Obtain alk. phos isoenzmes Grief finding [id number] Counseling [id number] MD Iza Ware (Adult Med) [address] [place] [phone] 06/18/2014 14:51:00 06/18/2014 16:07:10 Cough 95693803 This may represent a flare of her Sarcoidosi s although her symptoms appear to have started after her recent trip to [place], she has taken a course of Azithromyc in. I will treat her again with Biaxin and have her seen by her new Pulmonolog ist. Increased liver function [id number] Obtain alk. phos isoenzmes Tussive syncope 05482520 This most likely was cough syncope, she has not improved with Tessalon perles. I will try her on Robitussin AC Disorder o f lipid metabolism 773481335 Labs [id number] August HELDER Ovalle (Adult Med) [address] [place] [address] 84542-112 0 08/06/2014 14:50:24 08/06/2014 15:30:30 Sarcoidosis 36143987 Better and trying to get in with the new pulmonolog ist, she just completed two courses of Prednisone Blood leuk ocyte number above reference range 169486539 Possibly from either her recent steroids or recent lung infection Increased blood pressure 14444679 No prior history, there is a family member with a health crisis. This will be rechecked in a week. [id number] Iza (Adult Med) [address] [place] [address] [phone] 0 11/06/2014 14:50:26 11/06/2014 16:17:41 Shoulder pain 99089760 Elevated blood-pressure reading without diagnosis of hypertension 283518503 Blood leuk ocyte number above reference range 256727258 Resolved Disorder o f lipid metabolism 915555205 Labs Active or passive immunization 973982818 Close family members have had Shingles, she is requesting Zostavax. No documented history of Chicken Pox [id number] MD Iza Ware (Adult Med) [address] [place] [address] 88214-789 0 01/06/2015 15:58:01 01/06/2015 17:21:09 Benign hypertension 33265107 She has refused treatment with medication s at this time, I do not quite agree. She reports ambulatory readings of 127/70 Low salt diet Follow up in about 4- 6weeks [id number] MD Iza Ware (Adult Med) [address] [place] [address] [phone] 0 03/08/2015 11:52:34 03/08/2015 13:17:53 Benign hypertension 33171485 I10 Her BP is better than on her last visit, although still she has refused treatment with medication s at this time, I do not quite agree. She reports ambulatory readings of 140/70 Low salt diet and continue to lose weight Follow up in about 4- 6weeks I don't want to take no high BP medicine Active or passive immunization 983425567 Z23 Injury of foot 342426037 S99.921A Recent puncture wound of the plantar aspect of the right foot Sarcoidosis 21843567 D86 .9 She follows up eith the pulmonolog ist, Dr. Campos Pure hypercholesterolemia 118198621 E78.0 Medication monitoring 39 6180084 Z51.81 [id number] MD Iza Ware (Adult Med) [address] [place] [address] 95213-996 0 09/07/2015 11:46:15 09/08/2015 11:22:21 Benign hypertension 89510399 I10 My BP is not been high like that, it's been good She has refused treatment with medication s Chest pain 33870798 R07. 9 CXR 02/25/2014 negative Stress test 09/18/2013 negative She has refused treatment of her HTN and vouches that her ambulatory readings are normal, her chest pain is atypical. Alkaline p hosphatase above reference range 459292892 R74.8 Knee pain 78410451 M25.[address] Marcos Francois, she cannot tolerate Ibuprofen (GI ulcer), she had palpitatio ns with Diclofenac Na. She has requested a handicappe d sticker as she cannot walk far without stopping due to her pain and her dyspnea which is probably multifacto rial (weight, sarcoidosi s) Medication monitoring 39 4517195 Z51.81 Osteoarthr itis of knee 783113949 M17.32 [id number] MD Iza Ware (Adult Med) [address] [place] [address] 28689-308 0 10/17/2016 15:31:27 10/17/2016 16:19:45 Knee pain 40299004 M25.562 Obstructiv e sleep apnea syndrome 19768930 G47.33 Adult heal th examination 967001324 Z00.01 Disorder o f lipid metabolism 421398637 E78.9 Gout 59494056 M10.9 [id number] MD Iza Ware (Adult Med) [address] [place] [address] 87778-650 0 01/17/2017 10:30:36 01/17/2017 12:11:35 Benign essential hypertension 2133061 I10 Very reluctant, she is opposed to a diuretic. No water pill Alkaline p hosphatase above reference range 118536618 R74.8 Normal grief reaction 27 0978230 F43.20 Diabetes m ellitus screening 615122212 Z13.1 Gastroesop hageal reflux disease 412541880 K21.9 Relieved with OTC agents, patient education was done and she was triggers [id number] MD Iza Ware (Adult Med) [address] [place] [address] [phone] 0 02/21/2017 10:32:18 02/21/2017 11:41:15 Puncture wound of foot 04485779 S91.332A X ray to R/O a FBKeflex Influenza vaccine needed 3878832282 106 Z23 Benign hypertension 1072 5009 I10 Her kit which her niece gave to her is giving her rather false high readings [id number] MD Iza Ware (Adult Med) [address] [place] [address] 03060-879 0 03/22/2017 12:53:23 03/22/2017 13:43:52 Benign essential hypertension 5452938 I10 Continue current medication Pain in ri t lower limb 863938785 M79.604 Her knee xray suggestive of arthritis, she most likely has a sprain. [id number] MD Iza Ware (Adult Med) [address] [place] [address] 56016-534 0 04/04/2017 10:09:14 04/04/2017 10:39:58 Unstable knee 432651536 M25.369 M25.361 [place], her last Tram,adol fill was in September 2016.The pain agreement was discussed [id number] MD Iza Ware (Adult Med) [address] [place] [address] 73313-664 0 06/18/2017 15:08:19 06/18/2017 15:53:31 Adult health examination 972516417 Z00.01 Upper resp iratory infection 15584423 J06.9 Her rapid Strep was negative. Pain in right knee 84831 86806 69456 M25.561 Osteoarthr itis of knee 121457536 M17.32 Cramp in lower limb 4499 31701 R25.2 Pre-surger y evaluation 074973904 Z01.818 Low to medium risk of complicati ons [id number] MD Iza Ware (Adult Med) [address] [place] [address] 78453-924 0 05/16/2019 15:26:41 05/16/2019 16:45:59 General examination of patient 106244769 Z00.01 Screening for malignant neoplasm of breast 775148353 Z12.31 Administra tion of influenza vaccine 51779330 Z23 Benign hypertension 1072 5009 I10 Disorder o f lipid metabolism 005945338 E78.9 Unstable knee 531892759 M25.369 M25.361 UDS neededILPM P was reviewedTh e pain agreement needs to be renewed Gout 08229015 M10.9 Allergic rhinitis 405843 04 J30.9 Cramp in lower limb 4499 60269 R25.2 Normal grief reaction 27 0950774 F43.20 [id number] MD Iza Ware (Adult Med) [address] [place] [address] 41450-442 0 07/17/2019 14:57:33 07/18/2019 08:13:29 Alkaline phosphatase above reference range 650995479 R74.8 Administra tion of pneumococcal vaccine 52284174 Z23 Chest wall pain 62280996 6 R07.89 Sarcoidosis 52064662 D86 .9 She follows up eith the pulmonolog ist, Dr. Campos Osteoarthr itis of knee 034796581 M17.32 History of arthroscopy of knee joint 947857969 Z98.581 [id number] Fransisco Newby MD [facility] (Adult Med) [address] [place] [address] 92110-941 0 08/31/2020 08:15:22 09/02/2020 10:17:24 Upper respiratory infection 88531705 J06.9 Screening for malignant neoplasm of breast 856563220 Z12.31 Sarcoidosis 71783328 D86 .9 She was following up with the pulmonolog ist, Dr. Campos. 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 Dyspnea on exertion 6084 5006 R06.09 Continue Albuterol HFA as needed Gastroesop hageal reflux disease 940897208 K21.9 Advised about life style modificati on [id number] Chito Wheeler MD [facility] ts [address] [place] [address] 01/13/2021 09:52:04 01/14/2021 12:03:39 Pulmonary sarcoidosis 04489382 D86.0 Patient was diagnosed in 1972 with lymph node biopsy from the neck Chronic cough 97439746 R 05 Continue Flonase, I will check PFTs, 6MWT, overnight O2 study, CBC and IgE WNL Tobacco de pendence in remission 545623173 F17.201 15PYH, quit in 2004 Overweight 182343779 E66 .3 Advised about diet and exercise. Sleep disorder 08620620 G47.9 I will check overnight O2 study Posterior rhinorrhea 758 74682 R09.82 Continue Flonase Standard c hest X-ray abnormal 922609480 R93.89 11/2020IMPR ESSION:=== ==Limited by motion. Groundglas s opacities versus motion artifact. Pneumonia is a considerat ion. Clinical follow-up recommende d. Follow-up to resolution with radiograph in 8 weeks recommende d. I will repeat CXR Dyspnea on exertion 6084 5006 R06.09 Continue Albuterol HFA as needed Gastroesop hageal reflux disease 970583149 K21.9 Advised about life style modificati on [id number] Fransisco Newby MD [facility] (Adult Med) [address] [place] [address] 09971-361 0 05/04/2021 11:32:15 05/05/2021 10:23:20 Screening for malignant neoplasm of colon 224950436 Z12.11 I had it in [facility], he said every 5 years Administra tion of influenza vaccine 48574546 Z23 Bronchitis 37243749 J40 Benign hypertension 1072 5009 I10 Sarcoidosis 42502017 D86 .9 She was following up with the pulmonolog ist, Dr. Campos. Gout 56396432 M10.9 Disorder o f lipid metabolism 745278148 E78.9 Nocturia 225109585 R35.1 Osteoarthr itis of knee 620812956 M17.32 Allergic rhinitis 310515 04 J30.9 [id number] HELDER Hannon (Adult Med) [address] [place] [address] 93068-354 0 05/18/2021 10:23:44 05/19/2021 09:15:22 Administration of pneumococcal vaccine 15040731 Z23 [id number] MD Iza Ware (Adult Med) [address] [place] [address] 46373-118 0 10/27/2021 12:05:57 10/28/2021 06:55:25 Screening for malignant neoplasm of breast 548218082 Z12.31 Immunization advised 310 693295 Z71.9 General ex amination of patient 623385984 Z00.01 Osteoarthr itis of knee 457000647 M17.32 Disorder o f lipid metabolism 461002826 E78.9 [id number] HELDER Emmanuel (Peds) [address] [place] [address] 90866-332 0 10/28/2021 14:14:59 10/31/2021 19:58:13 Administration of SARS-CoV-2 mRNA vaccine 3649953681 Z23 [id number] MD Iza Ware (Adult Med) [address] [place] [address] 11735-848 0 05/29/2022 14:51:50 05/31/2022 12:47:04 Obesity 976920709 E66.9 Administra tion of diphtheria, pertussis, and tetanus vaccine 638926162 Z23 Screening for malignant neoplasm of breast 486893249 Z12.31 Benign hypertension 1072 5009 I10 Body mass index 40+ - severely obese 359889891 Z68.42 Disorder o f lipid metabolism 865879350 E78.9 Dry cough 89291065 R05.9 Immunization advised 310 498936 Z71.9 Chest pain 28657210 R07. 9 CXR 02/25/2014 negativeSt ress test 09/18/2013 negative Medication monitoring 39 5579051 Z51.81 [id number] MD Iza Ware (Adult Med) [address] [place] [address] 05286-375 0 10/13/2022 12:37:11 10/17/2022 16:10:46 Unexplained weight loss 343655221 R63.4 -8 lbs Sarcoidosis 87729137 D86 .9 CT scan as previously ordered05/22 CXR 06/12/2022 Fibrosis/p neumonitis . Hx of Sarcoidosi sCT scan recommende d Previous OV She was following up with the pulmonolog ist, Dr. Campos. Standard c hest X-ray abnormal 508514029 R93.89 CT scan as previously ordered 06/12/2022 CXR 06/12/2022 Fibrosis/p neumonitis . Hx of Sarcoidosi sCT scan recommende d Dizziness 925553199 R42 Benign hypertension 1072 5009 I10 [id number] MD Iza Ware (Adult Med) [address] [place] [address] 17997-504 0 10/24/2022 09:11:51 10/25/2022 11:41:59 Heart regularly irregular 975837111 I49.9 Dizziness 753592732 R42 White tamera er disorder due to ischemia 383008258 R90.82 Discussed Benign hypertension 1072 5009 I10 [id number] [facility] [address] [place] [address] 35719-685 0 11/09/2022 09:15:10 11/10/2022 13:07:[address]9 [address] scan as previously ordered on 06/12/2022 CXR 06/12/2022 Fibrosis/p neumonitis . Hx. of Sarcoidosi sCT scan recommende d Previous OV She was following up with the pulmonolog ist, Dr. Campos. 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 Hx. of Sarcoidosi sCT scan recommende d Previous OV She was following up with the pulmonolog ist, Dr. Campos. Magnetic r esonance imaging of brain abnormal 201306646 R90.89 Peridontoi d synovial hypertroph y, RA? Electrocar diogram abnormal 899560684 R94.31 Cardiology follow up needed Administra tion of influenza vaccine 85772834 Z23 [id number] MD Iza Ware (Adult Med) [address] [place] [address] 73950-049 0 03/22/2023 11:47:57 03/27/2023 09:57:52 Sinusitis 55218304 J32.9 Upper resp iratory infection 39188431 J06.9 Screening mammography of bilateral breasts 6444350560 21168 Z12.31 Chronic ce rebral ischemia 030575550 I67.82 Discussed again in detail Inflammato ry polyarthropathy 605966195 M06.4 The changes in the cervical spine suggest RA, although the serology is negative Degenerati on of cervical intervertebral disc 39225941 M50.30 Discusssed [id number] MD Iza Ware (Adult Med) [address] [place] [address] 37988-991 0 11/05/2023 11:05:10 11/06/2023 14:07:14 Body mass index 30+ - obesity 049744291 Z68.39 Dizziness 270373011 R42 Pain in ri ght hip joint 4795184466 02664 M25.551 General ex amination of patient 264986057 Z00.01 Disorder o f lipid metabolism 288750153 E78.9 Pure hypercholesterolemia 504471182 E78.00 [id number] MD Iza Ware (Adult Med) [address] [place] [address] 12539-420 0 04/02/2024 09:17:53 04/04/2024 08:35:49 Administration of influenza vaccine 99995528 Z23 Proteinuria 65490659 R80 .9 Electropho resis was normalLabs 11/05/2023 UA Protein 1+ Pain of le ft shoulder joint 6776601205 4343487 M25.512 Pain of le ft knee joint 2446459670 77635 M25.562 Obstructiv e sleep apnea syndrome 27162708 G47.33 Postmenopausal state 764 85270 Z78.0 Benign hypertension 1072 5009 I10 Health Concerns Section Related Observation LastModified by Organization Detai ls LastModified Time None Recorded Concern Status LastModified by Organization Details LastModified Time None Recorded Advance Directives Directive None Recorded Payers Encounter Date Sequence Insurance Name Policy Number Policy Johnston Covered Member ID Johnston Member ID Guarantor Name 11/09/2022 1 [facility] (MEDICARE REPLACEMENT/A DVANTAGE - HMO) [id number] Fely Jiang [id number] Fely Jiang 02/19/2023 1 [facility] (MEDICARE REPLACEMENT/A DVANTAGE - HMO) [id number] Fely Jiang [id number] Fely Jiang 03/22/2023 1 [facility] (MEDICARE REPLACEMENT/A DVANTAGE - HMO) [id number] Fely Jiang [id number] Fely Jiang 11/05/2023 1 [facility] (MEDICARE REPLACEMENT/A DVANTAGE - HMO) [id number] Fely Jiang [id number] Fely Jiang 04/02/2024 1 [facility] (MEDICARE REPLACEMENT/A DVANTAGE - HMO) [id number] Fely Jiang [id number] Fely Jiang Notes Date Note Type Note Provider Name and Address Organization Details Recorded Time 11/09/2022 text/html CoughReported bypatient.Quality:oleg sh Severity:worsening; severe Duration:constant Timing:worse Context:non-smoker Associated Symptoms:no fever; no chills; no chest pain; no heartburn; no nausea; no vomiting; no edema; no agitation; no wheezing; no post nasal drip I am doing better Cough Ms Jiang is doing better, she is not walking into [facility] anymore, but she now has a productive cough. Fransisco Newby MD Attn: [address] [place], [address], [facility] 11/09/2022 13:40:43 02/19/2023 text/html I just came in for an appointment In the interim, she was seen by the neurologist and there was concern about the brain MRI findings with respect to her c-spine and possible RA. The plan was to get a dedicated MRI of the c-spine, she declined to get it done as she wanted it locally and wanted me to place the order. Fransisco Newby MD Attn: [address]ing[address] [facility], [place], [address], [place] [facility] 02/19/2023 12:22:20 03/22/2023 text/html Follow up My s inus Ms Deidre presents with cold like symptoms for the last few weeks and to review her MRI and lab results. Fransisco Newby MD Attn: Accounting[address] [facility], [place], [address], [place] [facility] 11/05/2023 12:03:43 11/05/2023 text/html Hip(s)Reported bypatient.Location:[facility] Quality:aching Severity:moderate Duration:1 months Timing:acute Context:cannot identify Alleviating Factors:OTC medication ( Pain patch ) Aggravating Factors:walking Associated Symptoms:no weakness; no numbness; no tingling; no swelling; no redness; no warmth; no ecchymosis; no catching/locking; no popping/clicking; no buckling; no grinding; no instability; no radiation down leg; no drainage; no fever; no chills; no weight loss; no change in bowel/bladder habits Previous Surgery:none Prior Imaging:none Previous Injections:none Previous PT:none Work Related:no Working:noMedicare Annual Wellness VisitReported bypatient.Diet and Nutrition:healthy diet Fracture Risk:no history of fractures; no recent explained fracture; no sudden unexplained fractures; no previous musculoskeletal injuries Physical Activity:exercises on a regular basis; recent increase in physical activity; good physical condition Depression Risk:never feels sad, empty, or tearful; no loss of interest in activities; no significant changes in weight; no sleep disturbances or insomnia; no agitation; no loss of energy; no feelings of worthlessness or guilt; no thoughts of suicide; no history of depression; no history of mood disorders Orientation:no disorientation to time; no disorientation to date; no disorientation to place Concentration and Memory:no decreased concentrating ability; no memory lapses or loss; does not forget words Speech/Motor difficulties:no speech difficulties; no difficulty expressing formulated concepts; no difficulty with fine manipulative tasks; no difficulty writing/copying; no slowed reaction time; does not knock things over when trying to pick them up Hearing:no loss of hearing Vision:worse both distance and near Activities of Daily Living:able to bathe with limited or no assistance; able to contol urination and bowels; able to dress with limited or no assistance; able to feed self with limited or no assistance; able to get out of chair or bed with limited or no assistance; able to groom with limited or no assistance; able to toilet with limited or no assistance Instrumental Activities of Daily Living:able to do house work with limited or no assistance; able to grocery shop with limited or no assistance; able to manage medications with limited or no assistance; able to manage money with limited or no assistance; able to prepare meals with limited or no assistance; able to use the phone with limited or no assistance Falls Risk Assessment:no frequent falls while walking; no fall in the past year; no fall since last visit;dizziness/verti go Home Safety:no unsafe ela hazzards; no unsafe stairs; no unsafe gas appliances; working smoke/CO detectors; wears protective head gear for biking/high velocity; use of seatbelts; no vision or hearing loss while driving; no fire arms; has hand bars in the bathroom/shower; good lighting in the home Time for a check up That Vertigo This side my hip, I need to have that checked Ms Jiang complains of pain in her right hip Fransisco Newby MD Attn: Accounting[address] [place], [address], [facility] 11/05/2023 13:57:24 04/02/2024 text/html Hypertension F/UReported bypatient.Associated Symptoms:no dizziness; no lightheadedness; no chest pain; no shortness of breath; no palpitations; no edema; no calf pain with exertion Lifestyle:regular exercise; limiting/avoiding salt Medications:taking medications as directed; no side effects from medication; checks blood pressure at home, range: (129/70)KneeReported bypatient.Location:[facility] Quality:aching Severity:severe Duration:weeks Timing:acute; chronic Context:fall Alleviating Factors:NSAIDs Aggravating Factors:standing; walking; ROM Associated Symptoms:no weakness; no numbness; no tingling; no swelling; no redness; no warmth; no ecchymosis; no catching/locking; no popping/clicking; no buckling; no grinding; no radiation down leg; no drainage; no fever; no chills; no weight loss; no change in bowel/bladder habits;instability Previous Surgery:none Prior Imaging:x ray Previous Injections:helped a little Previous PT:none Work Related:no Working:noShoulderRep orted bypatient.Hand Dominance:right Location:left Quality:aching Severity:moderate Duration:weeks Timing:acute Context:fall Alleviating Factors:nothing helps Aggravating Factors:ROM Associated Symptoms:no weakness; no numbness; no tingling; no swelling; no redness; no warmth; no ecchymosis; no catching/locking; no popping/clicking; no buckling; no grinding; no instability; no radiation down arm; no drainage; no fever; no chills; no weight loss; no change in bowel/bladder habits Previous Surgery:none Prior Imaging:x ray Previous Injections:none Previous PT:none Work Related:no Working:no I had one, but I stopped using it, because there was a call back it was time for me to come in I came in for this here, they told me there is nothing broken but there is a knot in there I can hardly raise it She tripped and fell at a service station, was seen in the ER and followed up with the orthopedic surgeon. She was referred to PT, but she is yet to receive a call. She also noticed that she has been having issues with her left shoulder since her fall Hx of HAL on CPAP, she has not used her CPAP since it was recalled. Fransisco Newby MD Attn: Accounting[address] [place], [address], [facility] 04/02/2024 10:55:56 OBGyn Episode No OBEpisode recorded.
--- OUTSIDE RECORDS SUMMARY | 2024-06-13 01:32 | XMS_ITS | Referral Summary ---
Author Organization [facility] [place] [address] Address [address] [place] [id number] Care Team Providers Care Staff Psychologist Name Role Phone Fransisco Barajas MD Primary Care Provider Allergies Active Allergy Reactions Criticality Noted Date Comments Khadar Inhibitors Cough Low 06/09/2022 Medications atorvastatin (LIPITOR) 40 mg tablet Take 1 tablet (40 mg total) by mouth daily Active fluticasone propionate (Flonase Allergy Relief) 50 mcg/actuation nasal spray Flonase Allergy Relief 50 mcg/actuation spray,suspensio n 6 Active losartan (COZAAR) 25 mg tablet TAKE 1 TABLET BY MOUTH EVERY DAY DIRECTED. STOP LISINOPRIL Active meclizine (ANTIVERT) 25 mg tablet TAKE 1 TABLET BY MOUTH THREE TIMES A DAY DIRECTED FOR 14 DAYS 3 Active azithromycin (ZITHROMAX) 250 mg tablet TAKE 2 TABLETS BY MOUTH TODAY, THEN TAKE 1 TABLET DAILY FOR 4 DAYS 3 Active allopurinoL (ZYLOPRIM) 100 mg tablet Take 1 tablet (100 mg total) by mouth daily Active albuterol HFA (Ventolin HFA) 90 mcg/actuation inhaler Ventolin HFA 90 mcg/actuation HFA aerosol inhaler 6 Active aspirin 81 mg enteric coated tablet ASPIRIN 81 MG ORAL TABLET 6 Active Klor-Con M20 20 mEq CR tablet TAKE 2 TABLETS BY MOUTH EVERY DAY DIRECTED FOR 1 DAY Active Active Problems No known active problems Social History Tobacco Use Types Packs/Day Years Used Date Smoking Tobacco: Never Assessed Comments Unknown Sex and Gender Information Value Date Recorded Sex Assigned at Not on file 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 Gender Identity Not on file Sexual Orientation Not on file Last Filed Vital Signs Vital Sign Reading Time Taken Comments Blood Pressure 126/72 01/11/2023 10:27 AM CDT Pulse 73 01/11/2023 10:27 AM CDT Temperature - - Respiratory Rate - - Oxygen Saturation - - Inhaled Oxygen Concentration - - Weight 104.5 kg (230 lb 7.9 oz) 023 10:27 AM CDT Height 165.1 cm (5' 5 ) 01/11/2023 10:2 7 AM CDT Body Mass Index 38.36 01/11/2023 10:27 AM CDT Plan of Treatment Not on file Insurance [employer] Care Teams Staff Psychologist Relationship Specialty [place] [address] [place] [address] [address] [place] [address] PCP - General Internal Medicine 12/11/22
--- OUTSIDE RECORDS SUMMARY | 2024-06-13 01:32 | XMS_ITS | Continuity of Care Document ---
Author Organization [facility] Address [address] [place] [address] [address] [place] [address] Phone Care Team Providers Care Medical Support Assistant Name Role Phone Thais Garcia Unavailable Unavailable Advance Directives Directive Yes / No Effective Date File Name No Information Encounters Encounter Description Practice Location Reason(s) For Visit Diagnoses Date Provider Providers Copied on Encounter [facility], [address], [place], [place], [id number], [place] tel:[phone] [facility] No Information 6[address] Radha Plascencia. [address] [facility] , [address], [place], [address], [place]. tel:[phone] Family History Family Member Type Diagnosis Age At Onset No Information Payers Payer name Insurance type Covered libertarian ID Authoriza tion(s) No Information Social History Type Description Quantity Date Captured Comments Sex Female Smoking Status No Information Chief Complaint And Reason For Visit No Information Reason For Referral Reason For Referral No Information History Of Present Illness Encounter Date Complaint History Of Prese nt Illness No Information Functional Status Date Functional Assessmen t No Information Instructions Date Instruction Additional Infor mation No Information Assessments Type Assessment Date No Information Patient Care Teams Name Effective Dates (start - stop) Status Members No Information
--- OUTSIDE RECORDS SUMMARY | 2024-06-13 01:32 | XMS_ITS | Clinical Summary ---
Author Organization [facility] Address [address] [place] [address]. 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 Gender Identity Not on file Sexual Orientation Not on file Plan of Treatment Health Maintenance Due Date Last Done Comments Colorectal Cancer Screening Colonoscopy (10 Years) 1952 Hepatitis C 1970 DTaP, Tdap and Td Vaccines ( 1 - Tdap) 08/22/1971 Mammogram Screening 1992 Zoster Vaccines (1 of 2) 2002 Dexa Scan (General) 2017 Pneumococcal Vaccine: 65+ Ye ars (1 of 1 - PCV) 2017 COVID-19 Vaccine ( - 2023-2 5 season) 2024 Influenza Adult (#1) 2024 RSV Immunization or 60+ Years (1 - 1-dose 75+ series) 08/22/2027 Meningococcal Vaccine Aged Out No tasha aj eligible based on patient's age to complete this topic RSV Immunizations Under 20 Months Aged Out No longer eligible based on patient's age to complete this topic
--- OUTSIDE RECORDS SUMMARY | 2024-06-13 01:32 | XMS_ITS | Clinical Summary ---
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 Gender Identity Not on file Sexual Orientation Not on file Obstetrics History Last Filed Vital Signs Vital Sign Reading [...] 01/11/2023 10:27 AM CDT Plan of Treatment Health Maintenance Due Date Last Done Comments Breast Cancer Screening-Mammogram 1952 Colon Cancer Screening-Colonoscopy 1950 Depression Screening 1952 Fall Risk Assessment 1950 Hepatitis C Screening 1952 Osteoporosis Screening-Bone Density Scan 1952 Hepatitis B Screening 1970 Zoster Vaccine (1 of 2) 2002 Well Visit 65+ 2017 Covid-19 Vaccine (6 2023-2 5 season) 2024 10/28/2021, 04/20/2021, 04/04/2021, Additional history exists Influenza Vaccine (#1) 2024 , 05/04/2021, 05/16/2019, Additional history exists DTaP/Tdap/Td Vaccine (3 - Td or Tdap) 05/29/2032 05/29/2022, 05/01/2012 Pneumococcal vaccine 65+ Completed 05/18/2021, 06/22 Insurance [employer] Care Teams Rn Informatics Relationship Specialty Start Date End Date Fransisco Barajas MD [address] [place] [address] [address] [place] [address] PCP - General Internal Medicine 12/11/22
== END 2024-06-11 13:53 | disposition home or self-care (01) ==
PROVIDERS: PCP Internal Medicine Infectious Disease; Visit Provider Internal Medicine Infectious Disease
DX: Z78.0 Asymptomatic menopausal state (principal)
CPT/HCPCS: 77080

== ENCOUNTER 2024-10-17 14:58 | Outpatient (CLI) | payer MEDICARE, SELFPAY ==
--- NOTE | ~2024-10-17 | XR_ITS ---
XR lumbar spine 2-3V 10/17/2024 15:17 Indication: Low back pain Procedure: 3 views lumbar spine Comparison: No prior studies for comparison. Findings: There is disc narrowing at all lumbar levels. Marginal osteophytes are present at most leve ls. There is moderate multilevel facet hypertrophy. No fracture or traumatic malalignment. Vertebral body heights are maintained. Sacral foramen are symmetric. Impression: 1: Severe lumbar spondylosis. Reviewed, dictated and finalized at location A. Impression: 1: Severe lumbar spondylosis.
== END 2024-10-17 14:59 | disposition home or self-care (01) ==
LOC: ANHIMG 15:01
PROVIDERS: PCP Internal Medicine Infectious Disease; Visit Provider Internal Medicine Infectious Disease
DX: M43.06 Spondylolysis, lumbar region (principal)
CPT/HCPCS: 72100